=== PATIENT | female | born 1950 | race Caucasian/White ===

== ENCOUNTER 2019-10-11 01:28 | Day surgery (SDC) | payer MEDICARE, SELFPAY ==
[2019-10-05 10:32] VITALS: BMI 35.4
[2019-10-11 08:54] VITALS: BP 122/98; PULSE 92; RESP 18; TEMP 36.3; O2SAT 97
[2019-10-11] MEDS: LACTATED RINGERS 1,000 ML 150 ML IV CONT (09:00)
--- NOTE | 2019-10-11 09:29 | WPDANESEPPF ---
Anes - Initial Pre Proc Eval Procedure: Operation Date: 10/11/19 09:30 Proposed Procedures p Screening Colonoscopy - Arsenio Serrano MD Date/Time: 10/11/19 09:29 Surgeon: Arsenio Serrano MD Pre Op Diagnosis: Neoplasm Screening Patient Data Age: 69 Gender: F Height: 5 ft 2 in Weight: 87.5 kg Last Vital Signs Temp 97.4 F L 10/11/19 08:54 Pulse 92 10/11/19 08:54 Resp 18 10/11/19 08:54 BP 122/98 H 10/11/19 08:54 Pulse Ox 97 10/11/19 08:54 Allergies Allergy/AdvReac Type Severity Reaction Status Date / Time No Known Allergies Allergy Verified 10/11/19 08:53 Home Medications Medication Instructions Recorded Confirmed Type aspirin 81 mg tablet,delayed 81 mg PO DAILY 08/15/19 10/05/19 History release calcium carbonate 600 mg calcium 600 mg PO BID 08/15/19 10/05/19 History (1,500 mg) tablet cholecalciferol (vitamin D3) 25 25 mcg PO DAILY 08/15/19 10/05/19 History mcg (1,000 unit) capsule multivitamin 1 tablet PO DAILY 08/15/19 10/05/19 History atorvastatin 10 mg tablet 10 mg PO DAILY #90 tablet 08/16/19 10/05/19 Rx Collinsonia Root 1 tab-cap PO TID 10/05/19 10/05/19 History Patient hx anesthesia problems: none Family hx anesthesia problems: none PMFSH Past Medical History Medical History (Updated 10/11/19 @ 09:29 by Rene Trimble MD) Mixed hyperlipidemia Obesity (BMI 30.0-34.9) Social History Social History Smoking status: Never smoker Second hand tobacco smoke exposure: No Alcohol intake: never Anes - Eval Final PreProcedure Day of Procedure 10/11/19 09:29 Patient weight: obese Heart: regular rate and rhythm Lungs: clear to auscultation Airway: Mallampati scale class II Neurological: alert and oriented Last oral intake: >/= 8 hours ASA classification: II Emergent: no Anesthetic plan: proceed Anesthesia type and monitoring: general GIVS and standard monitoring Informed Consent: The patient's anesthetic plan and its attendant risks and benefits were discussed with the patient/family/POA. Questions were solicited and answers provided to the satisfaction of the patient/family/POA.
--- NOTE | 2019-10-11 09:34 | WPDGICN ---
Assessment and Plan Additional Plan This is a 69-year-old white female patient seen in evaluation at the request of . Patient presents for neoplasia screening. She states that her current weight appetite bowel movements are normal she denies abdominal pain. She states this week began to have bright red blood per rectum intermittently. Patient denies abdominal pain. Her bowel habits have not changed recently. Past medical history is significant for elevated cholesterol. Family history is noncontributory. No history of colon or rectal disease. Current medications include atorvastatin, and vitamins. No stated drug allergies. Physical exam reveals patient to be alert. Vital signs stable. HEENT exam unremarkable. Lungs are clear to auscultation and percussion. Heart is without murmur or extra sounds. Abdominal exam bowel sounds are present soft nontender with no hepatosplenomegaly. Digital external rectal exam is normal. Impression 1. Neoplasia screening. This is advised because of her age. 2. Rectal bleeding. Plan is to evaluate this at the same time as her colonoscopy. High-fiber diet is advised. Further recommendations will be given after endoscopy. GI Consult Note Consult date/time: 10/11/19 09:34 HPI: Luigi Mesa is a 69 year old female [facility] Past Medical History Medical History (Updated 10/11/19 @ 09:29 by Rene Trimble MD) Mixed hyperlipidemia Obesity (BMI 30.0-34.9) Social History Social History Smoking status: Never smoker Second hand tobacco smoke exposure: No Alcohol intake: never Meds Home Medications and Allergies Home Medications Medication Instructions Recorded Confirmed Type aspirin 81 mg tablet,delayed 81 mg PO DAILY 08/15/19 10/05/19 History release calcium carbonate 600 mg calcium 600 mg PO BID 08/15/19 10/05/19 History (1,500 mg) tablet cholecalciferol (vitamin D3) 25 25 mcg PO DAILY 08/15/19 10/05/19 History mcg (1,000 unit) capsule multivitamin 1 tablet PO DAILY 08/15/19 10/05/19 History atorvastatin 10 mg tablet 10 mg PO DAILY #90 tablet 08/16/19 10/05/19 Rx Collinsonia Root 1 tab-cap PO TID 10/05/19 10/05/19 History Allergies Allergy/AdvReac Type Severity Reaction Status Date / Time No Known Allergies Allergy Verified 10/11/19 08:53 Vital Signs Vital Signs - 24 hr 10/11/19 08:54 Temperature 36.3 C L Pulse Rate 92 Respiratory Rate 18 Blood Pressure 122/98 H Pulse Oximetry 97
--- NOTE | 2019-10-11 09:57 | WPDGICN ---
Assessment and Plan Additional Plan This is a 69-year-old white female patient is GI Consult Note Consult date/time: 10/11/19 09:57 HPI: Luigi Mesa is a 69 year old female [facility] Past Medical History Medical History (Updated 10/11/19 @ 09:29 by Rene Trimble MD) Mixed hyperlipidemia Obesity (BMI 30.0-34.9) Social History Social History Smoking status: Never smoker Second hand tobacco smoke exposure: No Alcohol intake: never Meds Home Medications and Allergies Home Medications Medication Instructions Recorded Confirmed Type aspirin 81 mg tablet,delayed 81 mg PO DAILY 08/15/19 10/05/19 History release calcium carbonate 600 mg calcium 600 mg PO BID 08/15/19 10/05/19 History (1,500 mg) tablet cholecalciferol (vitamin D3) 25 25 mcg PO DAILY 08/15/19 10/05/19 History mcg (1,000 unit) capsule multivitamin 1 tablet PO DAILY 08/15/19 10/05/19 History atorvastatin 10 mg tablet 10 mg PO DAILY #90 tablet 08/16/19 10/05/19 Rx Collinsonia Root 1 tab-cap PO TID 10/05/19 10/05/19 History Allergies Allergy/AdvReac Type Severity Reaction Status Date / Time No Known Allergies Allergy Verified 10/11/19 08:53 Vital Signs Vital Signs - 24 hr 10/11/19 08:54 Temperature 36.3 C L Pulse Rate 92 Respiratory Rate 18 Blood Pressure 122/98 H Pulse Oximetry 97
[2019-10-11 10:03] VITALS: BP 113/54; PULSE 76; RESP 18; O2SAT 97
[2019-10-11 10:13] VITALS: BP 111/54; PULSE 71; RESP 18; O2SAT 97
[2019-10-11 10:23] VITALS: BP 109/61; PULSE 71; RESP 18; O2SAT 97
== END 2019-10-11 11:02 | disposition home or self-care (01) ==
PROVIDERS: PCP Internal Medicine; Visit Provider Internal Medicine Gastroenterology
PROC: 0DJD8ZZ Inspection of Lower Intestinal Tract, Via Natural or Artificial Opening Endoscopic (ICD-10-PCS; CPT 45378; principal; 2019-10-11 09:30)
DX: Z12.11 Encounter for screening for malignant neoplasm of colon (principal); K57.30 Diverticulosis of large intestine without perforation or abscess without bleeding; K64.8 Other hemorrhoids; E78.2 Mixed hyperlipidemia; E66.9 Obesity, unspecified; Z68.35 Body mass index [BMI] 35.0-35.9, adult; Z79.82 Long term (current) use of aspirin
CPT/HCPCS: G0121; J2704; J7120

== ENCOUNTER 2020-01-24 08:14 | Outpatient (CLI) | payer MEDICARE, SELFPAY ==
--- NOTE | ~2020-01-24 | MM_ITS ---
EXAMINATION: MM screening [facility] BI w jeanie HISTORY: Screening mammogram TECHNIQUE: Craniocaudal and mediolateral oblique 3-D tomosynthesis images were obtained and synthetic 2-D images were generated. CAD analysis was submitted and interpreted. COMPARISON: 02/01/2019, 08/08/2018, 03/06/2018 BREAST PARENCHYMAL COMPOSITION: There are scattered areas of fibroglandular density. FINDINGS: There is no evidence of suspicious mass, calcification, or architectural distortion to sugg est malignancy in either breast. There has been no suspicious interval change. IMPRESSION: 1. No mammographic evidence of malignancy. 2. Recommend routine screening mammography in one year. BI-RADS Category 1: Negative Reviewed, dictated and finalized at location A.
== END 2020-01-24 08:15 | disposition home or self-care (01) ==
PROVIDERS: PCP Internal Medicine; Visit Provider Internal Medicine
DX: Z12.31 Encounter for screening mammogram for malignant neoplasm of breast (principal)
CPT/HCPCS: 77063; 77067

== ENCOUNTER 2020-08-16 08:08 | Outpatient (CLI) | payer MEDICARE, SELFPAY ==
[2020-08-16 08:51] LABS: Basophils Absolute Auto 0.1 K/mm3 (0.0-0.1); Basophils Percent Auto 0.8 % (0.2-1.2); Eosinophils Absolute Auto 0.3 K/mm3 (0-0.3); Eosinophils Percent Auto 2.6 % (0-4.4); Hematocrit 46.1 % (37.0-47.0); Immature Granulocyte Absolute 0.03 K/mm3 (0.00-0.031); Immature Granulocyte Percent A 0.3 % (0-0.5); Lymphocytes Absolute Auto 2.93 K/mm3 (0.9-3.2); Lymphocytes Percent Auto 30.4 % (18.3-44.2); Mean Corpuscular HGB Conc 32.5 g/dl (32-36); Mean Platelet Volume 8.8 fl (7.4-10.4); Monocytes Absolute Auto 1.2 K/mm3 (0.1-0.6); Monocytes Percent Auto 12.7 % (2.6-8.5); Neutrophils Absolute Auto 5.1 K/mm3 (1.3-6.7); Neutrophils Percent Auto 53.2 % (45.5-73.1); Platelet Count Result 306 k/mm3 (150-375); Red Blood Count 5.18 M/mm3 (4.2-5.4); Red Cell Distribution Width 13.2 % (11.5-14.5); White Blood Count 9.7 K/mm3 (4.5-10.0)
[2020-08-16 09:05] LABS: Alanine Aminotransferase 15 U/L (4-35); Albumin Level 3.8 g/dL (3.5-5.1); Alkaline Phosphatase 73 U/L (38-126); Anion Gap 5 mmol/L (8-16); Aspartate Amino Transferase 25 U/L (14-36); Bilirubin,Total 0.5 mg/dL (0.2-1.3); Blood Urea Nitrogen 27 mg/dL (7-17); Calcium 8.9 mg/dL (8.4-10.2); Carbon Dioxide 31 mmol/L (22-30); Chloride 103 mmol/L (98-107); Cholesterol 147 mg/dL (0-200); Estimated Glomerular Filt Rate 55; Glucose 122 mg/dL (65-105); HDL Direct 45 mg/dL; Potassium 4.2 mmol/L (3.4-5.0); Sodium 139 mmol/L (137-145); Triglycerides 164 mg/dL (<150)
[2020-08-16 09:15] LABS: Creatinine Urine 157.6 mg/dL
[2020-08-16 09:16] LABS: LDL Cholesterol Direct 75 mg/dL
[2020-08-16 09:20] LABS: MALB Creatinine Ratio 15.3 mg/g (0-30); Microalbumin Urine Random 24.1 mg/L (0-16.7)
[2020-08-16 09:31] LABS: Vitamin D 25 Hydroxy 48.3 ng/mL
[2020-08-16 09:38] LABS: Hemoglobin A1C 5.5 % (<5.7)
== END 2020-08-16 08:09 | disposition home or self-care (01) ==
PROVIDERS: PCP Internal Medicine; Visit Provider Internal Medicine
DX: R73.01 Impaired fasting glucose (principal); E55.9 Vitamin D deficiency, unspecified; E78.2 Mixed hyperlipidemia
CPT/HCPCS: 36415; 80053; 80061; 82043; 82306; 83036; 84443; 85025

== ENCOUNTER 2020-12-08 14:49 | Outpatient (CLI) | payer MEDICARE, SELFPAY | END 2020-12-08 14:50 | disposition home or self-care (01) | LOC: ANHCOVIDVC 14:49 | PROVIDERS: PCP Internal Medicine | DX: Z23 Encounter for immunization (principal) | CPT/HCPCS: 0001A; 91300 ==

== ENCOUNTER 2020-12-29 14:52 | Outpatient (CLI) | payer MEDICARE, SELFPAY | END 2020-12-29 14:53 | disposition home or self-care (01) | LOC: ANHCOVIDVC 14:52 | PROVIDERS: PCP Internal Medicine | DX: Z23 Encounter for immunization (principal) | CPT/HCPCS: 0002A; 91300 ==

== ENCOUNTER 2021-02-11 08:01 | Outpatient (CLI) | payer MEDICARE, SELFPAY ==
--- NOTE | ~2021-02-11 | MM_ITS ---
EXAMINATION: MM screening [facility] BI w jeanie HISTORY: Screening mammogram TECHNIQUE: Craniocaudal and mediolateral oblique 3-D tomosynthesis images were obtained and synthetic 2-D images were generated. CAD analysis was submitted and interpreted. COMPARISON: 01/24/2020, 02/01/2019, 08/08/2018, 03/06/2018 BREAST PARENCHYMAL COMPOSITION: There are scattered areas of fibroglandular density. FINDINGS: There is no evidence of suspicious mass, calcification, or architectural distortion to sugg est malignancy in either breast. There has been no suspicious interval change. IMPRESSION: 1. No mammographic evidence of malignancy. 2. Recommend routine screening mammography in one year. BI-RADS Category 1: Negative Reviewed, dictated and finalized at location A.
[2021-02-11 09:12] LABS: Alanine Aminotransferase 14 U/L (4-35); Albumin Level 3.8 g/dL (3.5-5.1); Alkaline Phosphatase 69 U/L (38-126); Anion Gap 8 mmol/L (8-16); Aspartate Amino Transferase 25 U/L (14-36); Bilirubin,Total 0.3 mg/dL (0.2-1.3); Blood Urea Nitrogen 23 mg/dL (7-17); Calcium 9.2 mg/dL (8.4-10.2); Carbon Dioxide 27 mmol/L (22-30); Chloride 106 mmol/L (98-107); Estimated Glomerular Filt Rate 49; Glucose 106 mg/dL (65-105); Potassium 4.3 mmol/L (3.4-5.0); Sodium 141 mmol/L (137-145)
== END 2021-02-11 08:02 | disposition home or self-care (01) ==
PROVIDERS: PCP Internal Medicine; Visit Provider Internal Medicine
DX: Z12.31 Encounter for screening mammogram for malignant neoplasm of breast (principal); R73.01 Impaired fasting glucose; R03.0 Elevated blood-pressure reading, without diagnosis of hypertension
CPT/HCPCS: 36415; 77063; 77067; 80053; 83036

== ENCOUNTER 2021-05-19 09:21 | Outpatient (CLI) | payer MEDICARE, SELFPAY ==
[2021-05-19 10:31] LABS: Hemoglobin A1C 5.8 % (<5.7)
[2021-05-19 10:36] LABS: Alanine Aminotransferase 15 U/L (4-35); Albumin Level 4.1 g/dL (3.5-5.1); Alkaline Phosphatase 77 U/L (38-126); Anion Gap 4 mmol/L (8-16); Aspartate Amino Transferase 29 U/L (14-36); Bilirubin,Total 0.6 mg/dL (0.2-1.3); Blood Urea Nitrogen 24 mg/dL (7-17); Calcium 9.1 mg/dL (8.4-10.2); Carbon Dioxide 30 mmol/L (22-30); Chloride 106 mmol/L (98-107); Estimated Glomerular Filt Rate 54; Glucose 116 mg/dL (65-110); Potassium 4.9 mmol/L (3.4-5.0); Sodium 140 mmol/L (137-145)
[2021-05-19 11:01] LABS: Creatinine Urine 167.5 mg/dL
[2021-05-19 11:05] LABS: MALB Creatinine Ratio 18.7 mg/g (0-30); Microalbumin Urine Random 31.3 mg/L (0-16.7)
== END 2021-05-19 09:22 | disposition home or self-care (01) ==
PROVIDERS: PCP Internal Medicine; Visit Provider Internal Medicine
DX: R73.01 Impaired fasting glucose (principal)
CPT/HCPCS: 36415; 80053; 82043; 83036

== ENCOUNTER 2021-09-29 07:41 | Outpatient (CLI) | payer MEDICARE, SELFPAY ==
[2021-09-29 08:57] LABS: Basophils Absolute Auto 0.1 K/mm3 (0.0-0.1); Basophils Percent Auto 0.7 % (0.2-1.2); Eosinophils Absolute Auto 0.3 K/mm3 (0-0.3); Eosinophils Percent Auto 2.6 % (0-4.4); Hematocrit 46.1 % (37.0-47.0); Hemoglobin 15.1 g/dL (12.0-15.0); Immature Granulocyte Absolute 0.04 K/mm3 (0.00-0.031); Immature Granulocyte Percent A 0.4 % (0-0.5); Lymphocytes Absolute Auto 3.29 K/mm3 (0.9-3.2); Lymphocytes Percent Auto 34.6 % (18.3-44.2); Mean Corpuscular HGB Conc 32.8 g/dl (32-36); Mean Corpuscular Hemoglobin 28.6 pg (26-34); Mean Corpuscular Volume 87.3 fl (80-100); Mean Platelet Volume 8.9 fl (7.4-10.4); Monocytes Percent Auto 10.8 % (2.6-8.5); Neutrophils Absolute Auto 4.8 K/mm3 (1.3-6.7); Neutrophils Percent Auto 50.9 % (45.5-73.1); Platelet Count Result 296 k/mm3 (150-375); Red Blood Count 5.28 M/mm3 (4.2-5.4); Red Cell Distribution Width 14.2 % (11.5-14.5); White Blood Count 9.5 K/mm3 (4.5-10.0)
[2021-09-29 09:06] LABS: Alanine Aminotransferase 17 U/L (4-35); Albumin Level 3.9 g/dL (3.5-5.1); Alkaline Phosphatase 75 U/L (38-126); Anion Gap 1 mmol/L (8-16); Aspartate Amino Transferase 24 U/L (14-36); Bilirubin,Total 0.4 mg/dL (0.2-1.3); Blood Urea Nitrogen 22 mg/dL (7-17); Calcium 9.2 mg/dL (8.4-10.2); Carbon Dioxide 29 mmol/L (22-30); Chloride 105 mmol/L (98-107); Cholesterol 146 mg/dL (0-200); Estimated Glomerular Filt Rate 49; Glucose 119 mg/dL (65-110); HDL Direct 46 mg/dL; Potassium 4.3 mmol/L (3.4-5.0); Sodium 135 mmol/L (137-145); Triglycerides 117 mg/dL (<150)
[2021-09-29 09:11] LABS: Hemoglobin A1C 5.9 % (<5.7)
[2021-09-29 09:17] LABS: LDL Cholesterol Direct 70 mg/dL
[2021-09-29 09:26] LABS: Vitamin D 25 Hydroxy 42.9 ng/mL
[2021-09-29 10:37] LABS: Add Urine Microscopic? YES; Appearance Urine Clear (Clear); Bilirubin Urine Negative (Negative); Blood Urine Negative (Negative); Color Urine Yellow (Yellow); Glucose Urine UA Negative (Negative); Ketones Urine Negative (Negative); Leukocyte Esterase Ur Trace LEU/UL (NEGATIVE); Mucus Urine Moderate /lpf; Nitrate Urine Negative (Negative); Protein Urine Negative (Negative); RBC Urine 21-50 /hpf (0-2); Specific Grav Ur 1.019 (1.001-1.035); Squamous Epithelial Cell Urine Occasional /hpf (Few); Urobilinogen Urine Negative mg/dL (<2.0)
== END 2021-09-29 07:42 | disposition home or self-care (01) ==
PROVIDERS: PCP Internal Medicine; Visit Provider Internal Medicine
DX: E55.9 Vitamin D deficiency, unspecified (principal); R73.01 Impaired fasting glucose; E78.2 Mixed hyperlipidemia
CPT/HCPCS: 36415; 80053; 80061; 81001; 82306; 83036; 84443; 85025

== ENCOUNTER 2021-10-08 09:37 | Outpatient (CLI) | payer MEDICARE, SELFPAY ==
[2021-10-08 10:34] LABS: Add Urine Microscopic? YES; Appearance Urine Clear (Clear); Bilirubin Urine Negative (Negative); Blood Urine Negative (Negative); Color Urine Colorless (Yellow); Glucose Urine UA Negative (Negative); Ketones Urine Negative (Negative); Leukocyte Esterase Ur Negative LEU/UL (Negative); Nitrate Urine Negative (Negative); Protein Urine Negative (Negative); RBC Urine 0-2 /hpf (0-2); Specific Grav Ur 1.005 (1.001-1.035); Squamous Epithelial Cell Urine Rare /hpf (Few); Urobilinogen Urine Negative mg/dL (<2.0)
== END 2021-10-08 09:38 | disposition home or self-care (01) ==
PROVIDERS: PCP Internal Medicine; Visit Provider Internal Medicine
DX: R82.71 Bacteriuria (principal)
CPT/HCPCS: 81001

== ENCOUNTER 2022-02-17 09:11 | Outpatient (CLI) | payer MEDICARE, SELFPAY ==
--- NOTE | ~2022-02-17 | MM_ITS ---
EXAMINATION: MM screening [facility] BI w jeanie HISTORY: Screening mammogram TECHNIQUE: Craniocaudal and mediolateral oblique 3-D tomosynthesis images were obtained and synthetic 2-D images were generated. CAD analysis was submitted and interpreted. COMPARISON: 02/11/2021, 01/16/2020 screening mammogram examinations BREAST PARENCHYMAL COMPOSITION: There are scattered areas of fibroglandular density. FINDINGS: Right breast: New 3.5 mm circumscribed opacity in the anterior inner aspect of the upper outer quadra nt of the right breast. Diagnostic right mammogram and right breast ultrasound examination are recomm ended. Left breast: There is no evidence of suspicious mass, calcification, or architectural distortion to s uggest malignancy in either breast. There has been no suspicious interval change. IMPRESSION: 1. New 3.5 mm mass in anterior inner aspect of the right breast 2. Diagnostic right mammogram and ultrasound examination are recommended BI-RADS Category 0: Incomplete: Needs additional imaging evaluation. Reviewed, dictated and finalized at location A.
== END 2022-02-17 09:12 | disposition home or self-care (01) ==
PROVIDERS: PCP Internal Medicine; Visit Provider Internal Medicine
DX: Z12.31 Encounter for screening mammogram for malignant neoplasm of breast (principal); R92.8 Other abnormal and inconclusive findings on diagnostic imaging of breast
CPT/HCPCS: 77063; 77067

== ENCOUNTER 2022-02-23 13:15 | Outpatient (CLI) | payer MEDICARE, SELFPAY ==
--- NOTE | ~2022-02-23 | MMUS_ITS ---
EXAMINATION: MM diagnostic [facility] RT w jeanie, US breast RT limited HISTORY: Follow-up right breast mass TECHNIQUE: Additional 3-D tomosynthesis images of the right breast were performed and synthetic 2-D i mages were generated. CAD analysis was submitted and interpreted. High resolution Limited right breas t ultrasound was performed. COMPARISON: Comparison to multiple prior studies sequentially, with oldest reviewed study dated 07/29. BREAST PARENCHYMAL COMPOSITION: Breast composed of scattered areas of fibroglandular density. FINDINGS: MAMMOGRAPHIC FINDINGS: There is a small periareolar mass of the right breast in the upper outer quadrant. There are no suspi cious calcifications or architectural distortion. ULTRASOUND: Limited right breast ultrasound: At 11:00 in the periareolar location there is a 3 mm cyst. This balta esponds to the mammographic abnormality. No suspicious sonographic abnormalities. IMPRESSION: 1. No evidence for malignancy in the right breast. Benign findings. 2. Routine yearly screening mammogram and regular clinical breast examination are recommended. BI-RADS Category 2: Benign finding(s). Reviewed, dictated and finalized at location A. IMPRESSION: 1. No evidence for malignancy in the right breast. Benign findings. 2. Routine yearly screening mammogram and regular clinical breast examination a re recommended. BI-RADS Category 2: Benign finding(s).
== END 2022-02-23 13:16 | disposition home or self-care (01) ==
LOC: ANHIMG 13:16
PROVIDERS: PCP Internal Medicine; Visit Provider Internal Medicine
DX: N60.01 Solitary cyst of right breast (principal)
CPT/HCPCS: 76642; 77061; 77065; G0279

== ENCOUNTER 2022-03-25 09:55 | Outpatient (CLI) | payer MEDICARE, SELFPAY ==
[2022-03-25 11:02] LABS: Alanine Aminotransferase 18 U/L (6-35); Alkaline Phosphatase 79 U/L (38-126); Anion Gap 9 mmol/L (8-16); Aspartate Amino Transferase 24 U/L (14-36); Bilirubin,Total 0.6 mg/dL (0.2-1.3); Blood Urea Nitrogen 20 mg/dL (7-17); Calcium 9.2 mg/dL (8.4-10.2); Carbon Dioxide 28 mmol/L (22-30); Chloride 103 mmol/L (98-107); Cholesterol 151 mg/dL (0-200); Estimated Glomerular Filt Rate > 60; Glucose 110 mg/dL (65-110); HDL Direct 45 mg/dL; Potassium 4.7 mmol/L (3.4-5.0); Sodium 140 mmol/L (137-145); Triglycerides 203 mg/dL (<150)
[2022-03-25 11:13] LABS: LDL Cholesterol Direct 64 mg/dL
[2022-03-25 11:22] LABS: Vitamin D 25 Hydroxy 54.7 ng/mL
[2022-03-25 12:33] LABS: Hemoglobin A1C 5.8 % (<5.7)
== END 2022-03-25 09:56 | disposition home or self-care (01) ==
PROVIDERS: PCP Internal Medicine; Visit Provider Nurse Practitioner
DX: E78.2 Mixed hyperlipidemia (principal); R73.01 Impaired fasting glucose; E55.9 Vitamin D deficiency, unspecified
CPT/HCPCS: 36415; 80053; 80061; 82306; 83036

== ENCOUNTER 2022-05-06 09:07 | Outpatient (CLI) | payer MEDICARE, SELFPAY ==
--- NOTE | ~2022-05-06 | DEXA_ITS ---
Bone Density Report Name: Luigi BROWN Age: 72 Sex: Female Ethnicity: White Date of : 1950 Indication: postmenopausal; screening for osteoporosis; height loss; Referring Provider: [facility] Study: Bone densitometry was performed. Exam Date: May 06, 2022 Accession number: [id number] Bone Density: Region BMD T-score Z-score Classification AP Spine(L1-L4) 0.983 -0.6 1.8 Normal Femoral Neck (Left) 0.831 -0.2 1.9 Normal Total Hip (Left) 1.059 1.0 2.7 Normal Femoral Neck (Right) 0.803 -0.4 1.6 Normal Total Hip (Right) 1.048 0.9 2.6 Normal Total Hip Mean 1.053 1.0 2.7 Normal World Health Organization criteria for BMD impression classify patients as: Normal (T-score at or above -1.0), Osteopenia (T-score between -1.0 and -2.5), or Osteoporosis (T-score at or below -2.5). 10-year Fracture Risk: FRAX not reported because: All T-scores for Spine Total, Hip Total, Femoral Neck at or above -1.0 Previous Exams: Region Exam Age BMD T-score BMD Change BMD Change Date g/cm2 vs Baseline vs Previous Total Hip(Right) 05/06/2022 72 1.048 0.9 -0.014 (-1.3%) -0.012 (-1.1%) 08/16/2017 67 1.060 1.0 -0.002 (-0.2%) 0.012 (1.2%) 08/08/2015 65 1.047 0.9 -0.014 (-1.3%) -0.014 (-1.3%) 07/25/2013 63 1.062 1.0 *Denotes significance at 95% confidence level, LSC for Total Hip = 0.027 g/cm2 # Denotes dissimilar scan types or analysis methods Clinical Information Provided by Patient: Has used the following medications: Vitamin D, Calcium Patient maximum height was 62 No regular weight bearing exercise Drinks caffeinated beverages Onset of menses at age 10 Number of children 3 Impression: The patient has normal bone mass. No significant bone loss was observed. Discussion: BONE DENSITY IS ABOVE THE MINIMUM DESIRABLE LEVEL AT ALL SKELETAL SITES TESTED. This patient?s bone mineral density is above the minimum desirable level (T-score -1.0 or better) at all sites measured. The patient should follow a healthful lifestyle (good nutrition with adequate calcium and vitamin D, and appropriate weight-bearing exercise). Follow-Up: Consider repeating this study in 5 years or sooner if there is some new clinical indication. Reported by: EDVIN on 05/06/2022 9:38:00 AM. Reviewed, dictated and finalized at location AReinaldo GALVEZ
== END 2022-05-06 09:08 | disposition home or self-care (01) ==
PROVIDERS: PCP Internal Medicine; Visit Provider Internal Medicine
DX: M85.89 Other specified disorders of bone density and structure, multiple sites (principal)
CPT/HCPCS: 77080

== ENCOUNTER 2022-10-07 08:21 | Outpatient (CLI) | payer MEDICARE, SELFPAY ==
[2022-10-07 11:21] LABS: Alanine Aminotransferase 17 U/L (6-35); Alkaline Phosphatase 76 U/L (38-126); Anion Gap 5 mmol/L (8-16); Aspartate Amino Transferase 23 U/L (14-36); Bilirubin,Total 0.6 mg/dL (0.2-1.3); Blood Urea Nitrogen 25 mg/dL (7-17); Calcium 8.7 mg/dL (8.4-10.2); Carbon Dioxide 28 mmol/L (22-30); Chloride 105 mmol/L (98-107); Cholesterol 157 mg/dL (0-200); Estimated Glomerular Filt Rate 54; Glucose 116 mg/dL (65-110); HDL Direct 50 mg/dL; Potassium 4.2 mmol/L (3.4-5.0); Sodium 138 mmol/L (137-145); Triglycerides 138 mg/dL (<150)
[2022-10-07 11:32] LABS: LDL Cholesterol Direct 66 mg/dL
[2022-10-07 12:27] LABS: Hemoglobin A1C 5.1 % (<5.7)
== END 2022-10-07 08:22 | disposition home or self-care (01) ==
PROVIDERS: PCP Internal Medicine; Visit Provider Nurse Practitioner
DX: E78.5 Hyperlipidemia, unspecified (principal); R73.01 Impaired fasting glucose
CPT/HCPCS: 36415; 80053; 80061; 83036

== ENCOUNTER 2023-04-14 07:24 | Outpatient (CLI) | payer MEDICARE, SELFPAY ==
[2023-04-14 08:46] LABS: Alanine Aminotransferase 18 U/L (6-35); Albumin Level 3.7 g/dL (3.5-5.1); Alkaline Phosphatase 70 U/L (38-126); Anion Gap 1 mmol/L (8-16); Aspartate Amino Transferase 23 U/L (14-36); Bilirubin,Total 0.6 mg/dL (0.2-1.3); Blood Urea Nitrogen 24 mg/dL (7-17); Carbon Dioxide 30 mmol/L (22-30); Chloride 105 mmol/L (98-107); Cholesterol 156 mg/dL (0-200); Estimated Glomerular Filt Rate 54; Glucose 118 mg/dL (65-110); HDL Direct 47 mg/dL; Potassium 4.6 mmol/L (3.4-5.0); Sodium 136 mmol/L (137-145); Triglycerides 187 mg/dL (<150)
[2023-04-14 08:57] LABS: LDL Cholesterol Direct 77 mg/dL
== END 2023-04-14 07:25 | disposition home or self-care (01) ==
LOC: ANHLAB 07:25
PROVIDERS: PCP Family Medicine; Visit Provider Nurse Practitioner
DX: E78.5 Hyperlipidemia, unspecified (principal)
CPT/HCPCS: 36415; 80053; 80061

== ENCOUNTER 2023-08-16 12:36 | Outpatient (CLI) | payer MEDICARE, SELFPAY ==
--- NOTE | ~2023-08-16 | MM_ITS ---
EXAMINATION: MM screening [facility] BI w jeanie HISTORY: Screening mammogram TECHNIQUE: Craniocaudal and mediolateral oblique 3-D tomosynthesis images were obtained and synthetic 2-D images were generated. CAD analysis was submitted and interpreted. COMPARISON: 02/23/2022 diagnostic right mammogram and limited right breast ultrasound examination 02/17/2022, 02/11/2021, 01/24/2020 bilateral screening mammogram examinations BREAST PARENCHYMAL COMPOSITION: There are scattered areas of fibroglandular density. FINDINGS: . Occasional bilateral small circumscribed low-density opacities, benign in appearance. The re is no evidence of suspicious mass, calcification, or architectural distortion to suggest malignanc y in either breast. There has been no suspicious interval change. IMPRESSION: 1. No mammographic evidence of malignancy. 2. Recommend routine screening mammography in one year. BI-RADS Category 2: Benign finding(s). Reviewed, dictated and finalized at location A. ADMISSIONS
== END 2023-08-16 12:37 | disposition home or self-care (01) ==
PROVIDERS: PCP Nurse Practitioner Family; Visit Provider Nurse Practitioner Family
DX: Z12.31 Encounter for screening mammogram for malignant neoplasm of breast (principal)
CPT/HCPCS: 77063; 77067

== ENCOUNTER 2023-10-10 08:29 | Outpatient (CLI) | payer MEDICARE, SELFPAY ==
[2023-10-10 09:11] LABS: Basophils Absolute Auto 0.1 K/mm3 (0.0-0.1); Basophils Percent Auto 0.7 % (0.2-1.2); Eosinophils Absolute Auto 0.3 K/mm3 (0-0.3); Eosinophils Percent Auto 2.1 % (0-4.4); Hematocrit 48.3 % (37.0-47.0); Hemoglobin 14.9 g/dL (12.0-15.0); Immature Granulocyte Absolute 0.03 K/mm3 (0.00-0.031); Immature Granulocyte Percent A 0.3 % (0-0.5); Lymphocytes Absolute Auto 3.69 K/mm3 (0.9-3.2); Lymphocytes Percent Auto 31.7 % (18.3-44.2); Mean Corpuscular HGB Conc 30.8 g/dl (32-36); Mean Corpuscular Hemoglobin 28.4 pg (26-34); Mean Platelet Volume 9.2 fl (7.4-10.4); Monocytes Absolute Auto 1.2 K/mm3 (0.1-0.6); Monocytes Percent Auto 9.9 % (2.6-8.5); Neutrophils Absolute Auto 6.4 K/mm3 (1.3-6.7); Neutrophils Percent Auto 55.3 % (45.5-73.1); Platelet Count Result 262 k/mm3 (150-375); Red Blood Count 5.25 M/mm3 (4.2-5.4); Red Cell Distribution Width 13.5 % (11.5-14.5); White Blood Count 11.6 K/mm3 (4.5-10.0)
[2023-10-10 09:29] LABS: Alanine Aminotransferase 15 U/L (6-35); Albumin Level 3.6 g/dL (3.5-5.1); Alkaline Phosphatase 75 U/L (38-126); Anion Gap 2 mmol/L (8-16); Aspartate Amino Transferase 26 U/L (14-36); Bilirubin,Total 0.7 mg/dL (0.2-1.3); Blood Urea Nitrogen 22 mg/dL (7-17); Calcium 8.9 mg/dL (8.4-10.2); Carbon Dioxide 31 mmol/L (22-30); Chloride 105 mmol/L (98-107); Cholesterol 154 mg/dL (0-200); Estimated Glomerular Filt Rate > 60; Glucose 114 mg/dL (65-110); HDL Direct 52 mg/dL; Potassium 4.3 mmol/L (3.4-5.0); Sodium 138 mmol/L (137-145); Triglycerides 142 mg/dL (<150)
[2023-10-10 09:40] LABS: LDL Cholesterol Direct 80 mg/dL
== END 2023-10-10 08:30 | disposition home or self-care (01) ==
PROVIDERS: PCP Nurse Practitioner Family; Visit Provider Nurse Practitioner Family
DX: E55.9 Vitamin D deficiency, unspecified (principal); E78.2 Mixed hyperlipidemia; E66.9 Obesity, unspecified; R73.01 Impaired fasting glucose
CPT/HCPCS: 36415; 80053; 80061; 82306; 83036; 85025

== ENCOUNTER 2023-10-12 09:44 | Outpatient (CLI) | payer MEDICARE, SELFPAY ==
--- NOTE | ~2023-10-12 | XR_ITS ---
Clinical Indication: Chronic cough PA and lateral views of the chest: Comparison: 04/26/2016 Findings: The lungs are clear, without evidence of focal consolidation or pleural effusion. Cardiome diastinal silhouette is within normal limits. Bones and soft tissues are unremarkable. Impression: Normal chest. Reviewed, dictated and finalized at location . [employer]ER Impression: Normal chest.
== END 2023-10-12 09:45 | disposition home or self-care (01) ==
LOC: ANHIMG 09:47
PROVIDERS: PCP Nurse Practitioner Family; Visit Provider Nurse Practitioner Family
DX: R05.3 Chronic cough (principal)
CPT/HCPCS: 71046

== ENCOUNTER 2024-04-11 07:40 | Outpatient (CLI) | payer MEDICARE, SELFPAY ==
[2024-04-11 08:00] LABS: Basophils Absolute Auto 0.1 K/mm3 (0.0-0.1); Basophils Percent Auto 0.4 % (0.2-1.2); Eosinophils Absolute Auto 0.2 K/mm3 (0-0.3); Eosinophils Percent Auto 1.3 % (0-4.4); Hematocrit 49.7 % (37.0-47.0); Hemoglobin 15.6 g/dL (12.0-15.0); Immature Granulocyte Absolute 0.19 K/mm3 (0.00-0.031); Immature Granulocyte Percent A 1.2 % (0-0.5); Lymphocytes Absolute Auto 5.43 K/mm3 (0.9-3.2); Lymphocytes Percent Auto 33.8 % (18.3-44.2); Mean Corpuscular HGB Conc 31.4 g/dl (32-36); Mean Corpuscular Hemoglobin 28.7 pg (26-34); Mean Corpuscular Volume 91.5 fl (80-100); Mean Platelet Volume 8.4 fl (7.4-10.4); Monocytes Absolute Auto 1.3 K/mm3 (0.1-0.6); Monocytes Percent Auto 7.9 % (2.6-8.5); Neutrophils Absolute Auto 8.9 K/mm3 (1.3-6.7); Neutrophils Percent Auto 55.4 % (45.5-73.1); Platelet Count Result 300 k/mm3 (150-375); Red Blood Count 5.43 M/mm3 (4.2-5.4); Red Cell Distribution Width 13.7 % (11.5-14.5); White Blood Count 16.1 K/mm3 (4.5-10.0)
[2024-04-11 08:08] LABS: Hemoglobin A1C 6.2 % (<5.7)
[2024-04-11 08:12] LABS: Alanine Aminotransferase 17 U/L (6-35); Albumin Level 3.5 g/dL (3.5-5.1); Alkaline Phosphatase 73 U/L (38-126); Anion Gap 4 mmol/L (4-12); Aspartate Amino Transferase 23 U/L (14-36); Bilirubin,Total 0.5 mg/dL (0.2-1.3); Blood Urea Nitrogen 19 mg/dL (7-17); Calcium 8.5 mg/dL (8.4-10.2); Carbon Dioxide 32 mmol/L (22-30); Chloride 100 mmol/L (98-107); Estimated Glomerular Filt Rate 54; Glucose 126 mg/dL (65-110); Potassium 4.1 mmol/L (3.4-5.0); Sodium 136 mmol/L (137-145)
== END 2024-04-11 07:41 | disposition home or self-care (01) ==
PROVIDERS: PCP Nurse Practitioner Family; Visit Provider Nurse Practitioner Family
DX: R73.01 Impaired fasting glucose (principal); E78.2 Mixed hyperlipidemia; R05.3 Chronic cough; R06.02 Shortness of breath
CPT/HCPCS: 36415; 80053; 83036; 85025; 88184

== ENCOUNTER 2024-08-17 09:12 | Outpatient (CLI) | payer MEDICARE, SELFPAY ==
--- NOTE | ~2024-08-17 | DEXA_ITS ---
Bone Density Report Name: Luigi BROWN Age: 74 Sex: Female Ethnicity: White Date of : 1950 Indication: postmenopausal; screening for osteoporosis; height loss; Referring Provider: RENITA NEVES Study: Bone densitometry was performed. Exam Date: August 17, 2024 Accession number: [id number] Bone Density: Region BMD T-score Z-score Classification AP Spine(L1-L4) 1.004 -0.4 2.1 Normal Femoral Neck (Left) 0.834 -0.1 2.0 Normal Total Hip (Left) 0.990 0.4 2.2 Normal Femoral Neck (Right) 0.799 -0.5 1.7 Normal Total Hip (Right) 1.042 0.8 2.7 Normal Total Hip Mean 1.016 0.6 2.5 Normal World Health Organization criteria for BMD impression classify patients as: Normal (T-score at or above -1.0), Osteopenia (T-score between -1.0 and -2.5), or Osteoporosis (T-score at or below -2.5). 10-year Fracture Risk: FRAX not reported because: All T-scores for Spine Total, Hip Total, Femoral Neck at or above -1.0 Previous Exams: Region Exam Age BMD T-score BMD Change BMD Change Date g/cm2 vs Baseline vs Previous AP Spine (L1-L4) 08/17/2024 74 1.004 -0.4 0.079 (8.5%)* 0.021 (2.1%)# 05/06/2022 72 0.983 -0.6 0.058 (6.3%)# 0.006 (0.6%) 08/16/2017 67 0.977 -0.6 0.052 (5.7%)# 0.028 (3.0%)* 08/08/2015 65 0.949 -0.9 0.024 (2.6%)# 0.024 (2.6%)# 07/25/2013 63 0.925 -1.1 Total Hip(Left) 08/17/2024 74 0.990 0.4 -0.040 (-3.8%) -0.070 (-6.6%) 05/06/2022 72 1.059 1.0 0.030 (2.9%)# 0.024 (2.3%) 08/16/2017 67 1.035 0.8 0.006 (0.6%)# -0.001 (-0.1%) 08/08/2015 65 1.036 0.8 0.007 (0.7%)# 0.007 (0.7%)# 07/25/2013 63 1.029 0.7 Total Hip(Right) 08/17/2024 74 1.042 0.8 -0.020 (-1.9%) -0.006 (-0.5%) 05/06/2022 72 1.048 0.9 -0.014 (-1.3%) -0.012 (-1.1%) 08/16/2017 67 1.060 1.0 -0.002 (-0.2%) 0.012 (1.2%) 08/08/2015 65 1.047 0.9 -0.014 (-1.3%) -0.014 (-1.3%) 07/25/2013 63 1.062 1.0 *Denotes significance at 95% confidence level, LSC for AP Spine = 0.022 g/cm2, LSC for Total Hip = 0.027 g/cm2 # Denotes dissimilar scan types or analysis methods Clinical Information Provided by Patient: Has used the following medications: Vitamin D, Calcium Patient maximum height was 62 Menopause Age: 46 No regular weight bearing exercise Drinks caffeinated beverages Onset of menses at age 10 Number of children 3 Impression: The patient has normal bone mass. No significant bone loss was observed. Discussion: BONE DENSITY IS ABOVE THE MINIMUM DESIRABLE LEVEL AT ALL SKELETAL SITES TESTED. This patient?s bone mineral density is above the minimum desirable level (T-score -1.0 or better) at all sites measured. The patient should follow a healthful lifestyle (good nutrition with adequate calcium and vitamin D, and appropriate weight-bearing exercise). Follow-Up: Consider repeating this study in 5 years or sooner if there is some new clinical indication. Reported by: EMMANUEL on 08/17/2024 9:55:00 AM. Reviewed, dictated and finalized at location Mike GALVEZ
--- NOTE | ~2024-08-17 | MM_ITS ---
EXAMINATION: MM screening [facility] BI w jeanie HISTORY: Screening TECHNIQUE: Craniocaudal and mediolateral oblique 3-D tomosynthesis images were obtained and synthetic 2-D images were generated. CAD analysis was submitted and interpreted. COMPARISON: Comparison to multiple prior studies sequentially, with oldest reviewed study dated 01/23. BREAST PARENCHYMAL COMPOSITION: Not dense: There are scattered areas of fibroglandular density. FINDINGS: The left breast is stable without evidence for malignancy. There are developing asymmetries centered in the upper outer quadrant of the right breast, middle third. There is a stable low-densit y mass in the periareolar region. IMPRESSION: 1. Developing right breast asymmetries. 2. Additional mammographic views and possible breast ultrasound are recommended. BI-RADS Category 0: Incomplete: Needs additional imaging evaluation. Reviewed, dictated and finalized at location B. HANDISING CONSULTANT IMPRESSION: 1. Developing right breast asymmetries. 2. Additional mammographic views and possible breast ultrasound are recommended . BI-RADS Category 0: Incomplete: Needs additional imaging evaluation.
== END 2024-08-17 09:13 | disposition home or self-care (01) ==
PROVIDERS: PCP Nurse Practitioner Family; Visit Provider Nurse Practitioner Family
DX: Z12.31 Encounter for screening mammogram for malignant neoplasm of breast (principal); Z78.0 Asymptomatic menopausal state; R92.8 Other abnormal and inconclusive findings on diagnostic imaging of breast
CPT/HCPCS: 77063; 77067; 77080

== ENCOUNTER 2024-09-18 10:26 | Outpatient (CLI) | payer MEDICARE, SELFPAY ==
--- NOTE | ~2024-09-18 | MMUS_ITS ---
EXAMINATION: MM diagnostic mere RT w jeanie, US breast RT complete HISTORY: Follow-up right breast asymmetries TECHNIQUE: Additional 3-D tomosynthesis images of the right breast were performed and synthetic 2-D i mages were generated. CAD analysis was submitted and interpreted. High resolution complete right raomna st ultrasound was performed. COMPARISON: Comparison to multiple prior studies sequentially, with oldest reviewed study dated 01/23. BREAST PARENCHYMAL COMPOSITION: Not dense: There are scattered areas of fibroglandular density. FINDINGS: MAMMOGRAPHIC FINDINGS: There are nodular asymmetries in the upper outer quadrant of the right breast anteriorly, although th is is less apparent with spot compression and mediolateral views. ULTRASOUND: Complete US of all 4 quadrants of the right breast/s and retroareolar region was reviewed. At 12:00 n ear the nipple there is 3 mm cyst. At 3:00, 2 cm from the nipple there is a benign-appearing anechoic structure with posterior shadowing measuring 3 mm, likely a benign cyst with milk of calcium layerin g or benign oral cysts. At 8:00, 12 cm from the nipple there is a benign-appearing intramammary lymph node. At 9:00, 2 cm from the nipple there is a 4 mm cyst. IMPRESSION: 1. No evidence for malignancy in the right breast. Benign findings. 2. Routine yearly screening mammogram and regular clinical breast examination are recommended. BI-RADS Category 2: Benign finding(s). Reviewed, dictated and finalized at location A. TECHNICIAN IMPRESSION: 1. No evidence for malignancy in the right breast. Benign findings. 2. Routine yearly screening mammogram and regular clinical breast examination a re recommended. BI-RADS Category 2: Benign finding(s).
== END 2024-09-18 10:27 | disposition home or self-care (01) ==
PROVIDERS: PCP Nurse Practitioner Family; Visit Provider Nurse Practitioner Family
DX: R92.8 Other abnormal and inconclusive findings on diagnostic imaging of breast (principal)
CPT/HCPCS: 76641; 77061; 77065; G0279

== ENCOUNTER 2024-10-02 15:24 | Inpatient (IN) | payer MEDICARE, SELFPAY ==
[2024-10-02] VITALS (8 sets, daily range): BP systolic 118–149; BP diastolic 53–75; PULSE 81–105; RESP 20–24; TEMP 36.6–39.4; O2SAT 90–96
--- NOTE | ~2024-10-02 | CT_ITS ---
EXAMINATION: CTA chest PE protocol DATE: 10/02/2024 19:56 SECRETARY OFFICE CLERK INDICATION: Shortness of breath with chronic cough and positive influenza A and leukocytosis. Pulmona ry embolus suspected clinically. TECHNIQUE: Computed tomographic angiography (CTA) of the chest was performed with 100 mL Omnipaque-35 0 intravenous contrast. The dose-length product was 673.05 mGy-cm. Maximum intensity projection 3D-re constructions of the aorta and other arteries were constructed by the technologist on a separate work station. COMPARISON: None. FINDINGS: No filling defects within the main or proximal pulmonary arteries. The thoracic aorta is unremarkable without aneurysmal dilatation or dissection. Interstitial thickening is detected bilaterally. Left basilar consolidation is noted, with trace righ t-sided consolidation. Limited evaluation of the upper abdomen. IMPRESSION: No pulmonary embolus. No aortic dissection. Left basilar consolidation with trace right-sided consolidation. Reviewed, dictated and finalized at location A. ETARY OFFICE CLERK
--- NOTE | ~2024-10-02 | XR_ITS ---
CHEST RADIOGRAPH, PA AND LATERAL CLINICAL HISTORY: shortness of breath . COMPARISON: 10/12/2023 TECHNIQUE: PA and lateral views of the chest. FINDINGS The cardiomediastinal silhouette is partially obscured, unchanged. Platelike atelectasis within the left mid to lower lung field with a small left-sided pleural effusio n. The remainder of the lungs are clear. IMPRESSION: Small left-sided pleural effusion with platelike atelectasis in the left mid to lower lung field. Reviewed, dictated and finalized at location A. [employer]
--- NOTE | 2024-10-02 15:26 | ECG_ITS ---
Test Date: 2024-10-02 15:58:13 Measurements Intervals [place] Rate: 113 P: 51 OK: 168 QRS: -57 QRSD: 84 T: 65 QT: 311 QTc: 427 Interpretive Statements SINUS TACHYCARDIA WITH OCCASIONAL SUPRAVENTRICULAR PREMATURE COMPLEXES POSSIBLE LEFT ATRIAL ENLARGEMENT LEFT ANTERIOR FASCICULAR BLOCK BASELINE ARTIFACT- I, III, AVR, AVL, AVF, V1, V4-V6 ABNORMAL ECG No previous ECG available for comparison Electronically Signed On 10-02-2024 18:38:44 PLANT NURSERY WORKER by Sarwat Shane D.O.
--- NOTE | 2024-10-02 16:03 | ED_ITS ---
HPI - SOB/Dyspnea General Chief Complaint: Shortness of Breath/Dyspnea <Marysol Lange APRN - Last Filed: 10/02/24 16:07> Stated Complaint: shortness of breath, cough-86% on RA <Marysol Lange APRN - Last Filed: 10/02/24 16:07> Time Seen by Provider: 10/02/24 15:50 <Marysol Lange APRN - Last Filed: 10/02/24 16:07> Focused HPI: Patient is a 74-year-old female presents to the ER with shortness of breath and a new oxygen requirement. She reports she has had cough and congestion for approximately 1 week. Today she became short of breath. Her primary care provider called the ER to alert staff of her arrival. Patient is is unable to maintain her oxygen saturation on room air and is requiring 2L nasal cannula to maintain saturations in the mid 90s. She reports her only history is high cholesterol. Patient denies any abdominal pain, back pain, urinary symptoms, recent nausea/vomiting. She reports she has never smoked cigarettes and does not have any secondhand exposure. GENERAL: Ill-appearing, well-nourished, and in acute respiratory distress. HEAD: Normocephalic, atraumatic. CHEST: Wheezing upon auscultation. ?+ respiratory distress. HEART: Tachycardia.? NEURO: ?Alert and oriented x3. Patient screened in triage and initial orders placed.? ?Additional care and disposition to be based upon?diagnostic testing and treatment. <Marysol Lange APRN - Last Filed: 10/02/24 16:07> Focused HPI: Patient is a 74-year-old female presents to the ER with shortness of breath and a new oxygen requirement. She reports she has had cough and congestion for approximately 1 week. Today she became short of breath. Her primary care provider called the ER to alert staff of her arrival. Patient is is unable to maintain her oxygen saturation on room air and is requiring 2L nasal cannula to maintain saturations in the mid 90s. She reports her only history is high cholesterol. Patient denies any abdominal pain, back pain, urinary symptoms, recent nausea/vomiting. She reports she has never smoked cigarettes and does not have any secondhand exposure. GENERAL: Ill-appearing, well-nourished, and in acute respiratory distress. HEAD: Normocephalic, atraumatic. CHEST: Wheezing upon auscultation. ?+ respiratory distress. HEART: Tachycardia.? NEURO: ?Alert and oriented x3. Patient screened in triage and initial orders placed.? ?Additional care and disposition to be based upon?diagnostic testing and treatment. <Brenna Wilcox PA-C - Last Filed: 10/02/24 22:14> Source: patient <NICOLAS Gage Last Filed: 10/02/24 22:14> Mode of arrival: ambulatory <NICOLAS Gage Last Filed: 10/02/24 22:14> Limitations: no limitations <NICOLAS Gage Last Filed: 10/02/24 22:14> History of Present Illness HPI Narrative: Agree with above HPI. Reports has been has been sick with similar symptoms. Denies known fevers at home. Has had some chest pain with coughing, but denies chest pain at rest. <NICOLAS Gage Last Filed: 10/02/24 22:14> Related Data Home Medications: Home Medications ?Medication ?Instructions ?Recorded ?Confirmed ?Last Taken ?Type calcium carbonate (Calcium 600) 600 mg PO BID 08/15/19 10/03/24 09/30/24 History cholecalciferol (vitamin D3) 25 25 mcg PO DAILY 08/15/19 10/03/24 09/30/24 History mcg (1,000 unit) capsule (Vitamin D3) <Mraysol Lange APRN - Last Filed: 10/02/24 16:07> Allergies/Adverse Reactions: Allergies Allergy/AdvReac Type Severity Reaction Status Date / Time No Known Allergies Allergy Verified 10/02/24 15:25 <Marysol Lange APRN - Last Filed: 10/02/24 16:07> Review of Systems 2 Review of Systems: All systems reviewed & are unremarkable except as noted in HPI. 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 Chronic sinusitis With chronic cough Allergic rhinitis Mixed hyperlipidemia Obesity (BMI 30.0-34.9) <Marysol Lange, ARCHITECT - Last Filed: 10/02/24 16:07> Surgical History Surgical History: Surgical History S/P cubital tunnel release Left Bunion of unspecified foot Removal yr unknown H/O: x3 1970,1972,1975 <Marysol Lange, ARCHITECT - Last Filed: 10/02/24 16:07> Family History Family History: Family History Sibling Family history of thyroid disease Family history of Parkinson's disease Family history of Alzheimer's disease Mother Family history of Alzheimer's disease, Onset Age: 87 Family history of diabetes mellitus in first degree relative Father Family history of heart disease in male family member before age 55 Family history of cardiovascular disease Family history of arthritis Family history of hearing loss <Marysol Lange, ARCHITECT - Last Filed: 10/02/24 16:07> Social History Social History: Social History Social History: She lives her of 55 years. They 3 daughters. She is a lifelong nonsmoker and does not drink alcohol or use illicit substances. She is independent in all activities of daily living. Code status: DNR/DNI per patient request Healthcare power of deputy prosecuting attorney: Javon () or if is ill and unable to provide answers she will defer surrogate decision making to Prema (youngest daughter) Smoking status: Never smoker Second hand tobacco smoke exposure: No Alcohol intake: never Substance use: never Substance use type: does not use Do You Feel Safe in your Home?: Yes Lack of Transportation: No Lack of Food: Never True Current Housing: I Have Housing Concerned About Future Housing: No Difficulty Paying Gas/Electric Bills: No Difficulty Paying for Meds: No Currently Unemployed: No Education: Bachelor's Degree Difficulty w/ Childcare or Family Care: No Living arrangements: with family Occupation/Education: retired Gender identity (if verbalized by the patient): Female Sexual Orientation (if Verbalized by the Patient): Straight or Heterosexual Spiritual care concerns: No Agree to blood products: Yes <Marysol Lange APRN - Last Filed: 10/02/24 16:07> Exam 2 Narrative: GENERAL: Ill-appearing, obese with BMI of 36.8, in mild acute distress. HEAD: Normocephalic, atraumatic. RESPIRATORY: Airway patent, respirations mildly labored, tachypneic. On 4 L nasal cannula. Diffuse rhonchi throughout bases bilaterally. Occasional faint expiratory wheezing gregoria - worse in L lower lung zone CARDIOVASCULAR: Borderline tachycardic with regular rhythm without murmurs, rubs, or gallops. ABDOMINAL: Soft, nontender, nondistended. Normoactive BS. MUSCULOSKELETAL: Moves all extremities. No gross deformities. SKIN: Warm, dry, normal color. NEURO: A&O X3. Speech clear. Cranial nerves II-XII grossly intact. Steady gait. No ataxic movements. PSYCHIATRIC: Appropriate mood and affect. Normal interaction. <Brenna Wilcox PA-C - Last Filed: 10/02/24 22:14> Course BOOKING PRIZER/PA Physician Supervision PA informed me this patient would be admitted. I was available for consultation while they were in the emergency department but otherwise not personally evaluate them and was not directly involved in their care. <Cheryl Davenport MD - Last Filed: 10/03/24 18:06> Vital Signs Vital signs: Vital Signs Temperature 98.3 F 10/02/24 16:29 Pulse Rate 103 H 10/02/24 16:29 Respiratory Rate 24 H 10/02/24 16:29 Blood Pressure 139/70 10/02/24 16:29 Pulse Oximetry 94 10/02/24 16:29 Oxygen Delivery Nasal Cannula 10/02/24 16:29 Oxygen Flow Rate 2 10/02/24 16:29 Temperature 97.8 F 10/03/24 14:00 Pulse Rate 86 10/03/24 14:00 Respiratory Rate 20 10/03/24 14:00 Blood Pressure 142/64 H 10/03/24 14:00 Pulse Oximetry 96 10/03/24 14:00 Oxygen Delivery Room Air 10/03/24 13:30 Oxygen Flow Rate 2 10/03/24 13:15 <Marysol Lange APRN - Last Filed: 10/02/24 16:07> Vital Signs Temperature 98.3 F 10/02/24 16:29 Pulse Rate 103 H 10/02/24 16:29 Respiratory Rate 24 H 10/02/24 16:29 Blood Pressure 139/70 10/02/24 16:29 Pulse Oximetry 94 10/02/24 16:29 Oxygen Delivery Nasal Cannula 10/02/24 16:29 Oxygen Flow Rate 2 10/02/24 16:29 Temperature 97.8 F 10/03/24 14:00 Pulse Rate 86 10/03/24 14:00 Respiratory Rate 20 10/03/24 14:00 Blood Pressure 142/64 H 10/03/24 14:00 Pulse Oximetry 96 10/03/24 14:00 Oxygen Delivery Room Air 10/03/24 13:30 Oxygen Flow Rate 2 10/03/24 13:15 <Brenna Wilcox PA-C - Last Filed: 10/02/24 22:14> Vital Signs Temperature 98.3 F 10/02/24 16:29 Pulse Rate 103 H 10/02/24 16:29 Respiratory Rate 24 H 10/02/24 16:29 Blood Pressure 139/70 10/02/24 16:29 Pulse Oximetry 94 10/02/24 16:29 Oxygen Delivery Nasal Cannula 10/02/24 16:29 Oxygen Flow Rate 2 10/02/24 16:29 Temperature 97.8 F 10/03/24 14:00 Pulse Rate 86 10/03/24 14:00 Respiratory Rate 20 10/03/24 14:00 Blood Pressure 142/64 H 10/03/24 14:00 Pulse Oximetry 96 10/03/24 14:00 Oxygen Delivery Room Air 10/03/24 13:30 Oxygen Flow Rate 2 10/03/24 13:15 <Cheryl Davenport MD - Last Filed: 10/03/24 18:06> MDM - SOB/Dyspnea MDM Narrative Medical decision making narrative: Patient presented to ED with URI symptoms x1 week, now with increased shortness of breath. Patient was noted to be hypoxic upon arrival into the mid 80s. She was placed on 2 L nasal cannula, which was increased to 4L. No previous oxygen requirement. Upon my evaluation, patient is tachycardic, tachypneic, febrile. Fluids and Tylenol initiated. CBC with white blood cell count of 18.6. Neutrophil predominance. No bandemia. CMP with evidence of mild dehydration. Electrolytes are stable. Kidney function is stable. Patient is influenza A positive. This is consistent with clinical picture. is also present in the ED and positive for influenza as well. EKG with sinus tachycardia, no concerning ischemic changes. Baseline troponin is undetectable. BNP WNL. Chest x-ray with small left-sided pleural effusion. D-dimer did result elevated at 2.03. CTA PE study of obtained and no evidence of PE or aortic abnormality. Does show left basilar consolidation, trace right-sided consolidation. Patient will be admitted for further evaluation and management of influenza and new oxygen requirement. Will obtain blood cultures. Procal is 0.2. Lactic acid within normal range. Discussed case with Dr. Mosqueda, hospitalist, accepted patient for admission. Will start abx to cover for potential superimposed bacterial PNA given patient is 1 week out from symptom onset with persistent fevers, lobar consolidation, leukocytosis. Rocephin and azithromycin started in the ED. Urine additionally does appear infectious. Sent for cx. Rocephin ongoing. Patient is in agreement with plan and need for admission. <Brenna Wilcox PA-C - Last Filed: 10/02/24 22:14> Medical Records Attestation: I reviewed the patient's medical records. <Brenna Wilcox PA-C - Last Filed: 10/02/24 22:14> Lab Data Attestation: I reviewed the patient's lab results. <Brenna Wilcox PA-C - Last Filed: 10/02/24 22:14> Result diagrams: 10/03/24 08:20 10/03/24 08:20 <Marysol Lange APRN - Last Filed: 10/02/24 16:07> Labs: Lab Results 10/02/24 10/02/24 10/02/24 Range/Units 16:04 16:05 19:46 WBC 18.6 H (4.5-10.0) K/mm3 RBC 4.86 (4.2-5.4) M/mm3 Hgb 13.8 (12.0-15.0) g/dL Hct 42.4 (37.0-47.0) % MCV 87.2 (80-100) fl MCH 28.4 (26-34) pg MCHC 32.5 (32-36) g/dl RDW 13.5 (11.5-14.5) % Plt Count 300 (150-375) k/mm3 MPV 9.4 (7.4-10.4) fl Immature Gran % (Auto) 1.0 H (0-0.5) % Neut % (Auto) 75.3 H (45.5-73.1) % Lymph % (Auto) 12.2 L (18.3-44.2) % [place] % (Auto) 10.6 H (2.6-8.5) % Eos % (Auto) 0.6 (0-4.4) % Baso % (Auto) 0.3 (0.2-1.2) % Lymph # (Auto) 2.26 (0.9-3.2) K/mm3 [place] # (Auto) 2.0 H (0.1-0.6) K/mm3 Eos # (Auto) 0.1 (0-0.3) K/mm3 Baso # (Auto) 0.1 (0.0-0.1) K/mm3 Abs Immat Gran (auto) 0.19 H (0.00-0.031) K/mm3 Absolute Neuts (auto) 14.0 H (1.3-6.7) K/mm3 Absolute Nucleated RBC 0.000 (0.0-0.012) K/mm3 Nucleated RBC % 0.0 (0.0-0.2) % PT 15.4 H (11.1-14.7) Seconds INR 1.2 APTT 33.3 (22.3-36.8) Seconds D-Dimer 2.03 H (<0.48) ug/mL Sodium 132 L (137-145) mmol/L Potassium 3.9 (3.4-5.0) mmol/L Chloride 96 L (98-107) mmol/L Carbon Dioxide 29 (22-30) mmol/L Anion Gap 7 (4-12) mmol/L BUN 25 H (7-17) mg/dL Creatinine 0.75 (0.7-1.0) mg/dL Estim Creat Clear Calc Not Reportable Estimated GFR > 60 (59 - ) Glucose 123 H (65-110) mg/dL Lactic Acid 1.2 (0.7-2.0) mmol/L Calcium 8.4 (8.4-10.2) mg/dL Magnesium 2.4 H (1.6-2.3) mg/dL Total Bilirubin 1.0 (0.2-1.3) mg/dL AST 44 H (14-36) U/L ALT 25 (6-35) U/L Alkaline Phosphatase 115 (38-126) U/L Troponin I < 0.012 (0.000-0.034) ng/mL NT-Pro-B Natriuret Pep 157 H (19.9-100) pg/mL Total Protein 7.0 (6.3-8.2) g/dL Albumin 3.4 L (3.5-5.1) g/dL Procalcitonin 0.2 ng/mL Urine Color (Yellow) Urine Appearance (Clear) Urine pH (5.0-9.0) Ur Specific [place] (1.001-1.035) Urine Protein (Negative) mg/dL Urine Glucose (UA) (Negative) mg/dL Urine Ketones (Negative) mg/dL Ur Blood (Man) (Negative) Urine Nitrate (Negative) Urine Bilirubin (Negative) Urine Urobilinogen (<2.0) mg/dL Add Ur Microanalysis Leukocyte Esterase Rfl (Negative) PARKER/UL Urine RBC (0-2) /hpf Urine WBC (0-3) /hpf Ur Squamous Epith Cells (Few) /hpf Urine Bacteria /hpf Urine Casts Urine Yeast (Budding) (None) /hpf Influenza A (RT-PCR) Positive A (Negative) Influenza B (RT-PCR) Negative (Negative) RSV (RT-PCR) Negative (Negative) SARS-CoV-2 RNA (RT-PCR) Negative (Negative) 10/02/24 Range/Units 20:47 WBC (4.5-10.0) K/mm3 RBC (4.2-5.4) M/mm3 Hgb (12.0-15.0) g/dL Hct (37.0-47.0) % MCV (80-100) fl MCH (26-34) pg MCHC (32-36) g/dl RDW (11.5-14.5) % Plt Count (150-375) k/mm3 MPV (7.4-10.4) fl Immature Gran % (Auto) (0-0.5) % Neut % (Auto) (45.5-73.1) % Lymph % (Auto) (18.3-44.2) % [place] % (Auto) (2.6-8.5) % Eos % (Auto) (0-4.4) % Baso % (Auto) (0.2-1.2) % Lymph # (Auto) (0.9-3.2) K/mm3 [place] # (Auto) (0.1-0.6) K/mm3 Eos # (Auto) (0-0.3) K/mm3 Baso # (Auto) (0.0-0.1) K/mm3 Abs Immat Gran (auto) (0.00-0.031) K/mm3 Absolute Neuts (auto) (1.3-6.7) K/mm3 Absolute Nucleated RBC (0.0-0.012) K/mm3 Nucleated RBC % (0.0-0.2) % PT (11.1-14.7) Seconds INR APTT (22.3-36.8) Seconds D-Dimer (<0.48) ug/mL Sodium (137-145) mmol/L Potassium (3.4-5.0) mmol/L Chloride (98-107) mmol/L Carbon Dioxide (22-30) mmol/L Anion Gap (4-12) mmol/L BUN (7-17) mg/dL Creatinine (0.7-1.0) mg/dL Estim Creat Clear Calc Estimated GFR (59 - ) Glucose (65-110) mg/dL Lactic Acid (0.7-2.0) mmol/L Calcium (8.4-10.2) mg/dL Magnesium (1.6-2.3) mg/dL Total Bilirubin (0.2-1.3) mg/dL AST (14-36) U/L ALT (6-35) U/L Alkaline Phosphatase (38-126) U/L Troponin I (0.000-0.034) ng/mL NT-Pro-B Natriuret Pep (19.9-100) pg/mL Total Protein (6.3-8.2) g/dL Albumin (3.5-5.1) g/dL Procalcitonin ng/mL Urine Color Dark yellow (Yellow) Urine Appearance Turbid H (Clear) Urine pH 5.5 (5.0-9.0) Ur Specific [place] 1.035 (1.001-1.035) Urine Protein 3+ H (Negative) mg/dL Urine Glucose (UA) Negative (Negative) mg/dL Urine Ketones 1+ H (Negative) mg/dL Ur Blood (Man) 2+ H (Negative) Urine Nitrate Negative (Negative) Urine Bilirubin 2+ H (Negative) Urine Urobilinogen 2.0 H (<2.0) mg/dL Add Ur Microanalysis Reviewed Leukocyte Esterase Rfl 2+ H (Negative) PARKER/UL Urine RBC 11-20 H (0-2) /hpf Urine WBC 51-100 H (0-3) /hpf Ur Squamous Epith Cells Occasional (Few) /hpf Urine Bacteria 4+ H /hpf Urine Casts 11-20 Urine Yeast (Budding) Present H (None) /hpf Influenza A (RT-PCR) (Negative) Influenza B (RT-PCR) (Negative) RSV (RT-PCR) (Negative) SARS-CoV-2 RNA (RT-PCR) (Negative) <Marysol Lange, ARCHITECT - Last Filed: 10/02/24 16:07> Lab Results 10/02/24 10/02/24 10/02/24 Range/Units 16:04 16:05 19:46 WBC 18.6 H (4.5-10.0) K/mm3 RBC 4.86 (4.2-5.4) M/mm3 Hgb 13.8 (12.0-15.0) g/dL Hct 42.4 (37.0-47.0) % MCV 87.2 (80-100) fl MCH 28.4 (26-34) pg MCHC 32.5 (32-36) g/dl RDW 13.5 (11.5-14.5) % Plt Count 300 (150-375) k/mm3 MPV 9.4 (7.4-10.4) fl Immature Gran % (Auto) 1.0 H (0-0.5) % Neut % (Auto) 75.3 H (45.5-73.1) % Lymph % (Auto) 12.2 L (18.3-44.2) % [place] % (Auto) 10.6 H (2.6-8.5) % Eos % (Auto) 0.6 (0-4.4) % Baso % (Auto) 0.3 (0.2-1.2) % Lymph # (Auto) 2.26 (0.9-3.2) K/mm3 [place] # (Auto) 2.0 H (0.1-0.6) K/mm3 Eos # (Auto) 0.1 (0-0.3) K/mm3 Baso # (Auto) 0.1 (0.0-0.1) K/mm3 Abs Immat Gran (auto) 0.19 H (0.00-0.031) K/mm3 Absolute Neuts (auto) 14.0 H (1.3-6.7) K/mm3 Absolute Nucleated RBC 0.000 (0.0-0.012) K/mm3 Nucleated RBC % 0.0 (0.0-0.2) % PT 15.4 H (11.1-14.7) Seconds INR 1.2 APTT 33.3 (22.3-36.8) Seconds D-Dimer 2.03 H (<0.48) ug/mL Sodium 132 L (137-145) mmol/L Potassium 3.9 (3.4-5.0) mmol/L Chloride 96 L (98-107) mmol/L Carbon Dioxide 29 (22-30) mmol/L Anion Gap 7 (4-12) mmol/L BUN 25 H (7-17) mg/dL Creatinine 0.75 (0.7-1.0) mg/dL Estim Creat Clear Calc Not Reportable Estimated GFR > 60 (59 - ) Glucose 123 H (65-110) mg/dL Lactic Acid 1.2 (0.7-2.0) mmol/L Calcium 8.4 (8.4-10.2) mg/dL Magnesium 2.4 H (1.6-2.3) mg/dL Total Bilirubin 1.0 (0.2-1.3) mg/dL AST 44 H (14-36) U/L ALT 25 (6-35) U/L Alkaline Phosphatase 115 (38-126) U/L Troponin I < 0.012 (0.000-0.034) ng/mL NT-Pro-B Natriuret Pep 157 H (19.9-100) pg/mL Total Protein 7.0 (6.3-8.2) g/dL Albumin 3.4 L (3.5-5.1) g/dL Procalcitonin 0.2 ng/mL Urine Color (Yellow) Urine Appearance (Clear) Urine pH (5.0-9.0) Ur Specific [place] (1.001-1.035) Urine Protein (Negative) mg/dL Urine Glucose (UA) (Negative) mg/dL Urine Ketones (Negative) mg/dL Ur Blood (Man) (Negative) Urine Nitrate (Negative) Urine Bilirubin (Negative) Urine Urobilinogen (<2.0) mg/dL Add Ur Microanalysis Leukocyte Esterase Rfl (Negative) PARKER/UL Urine RBC (0-2) /hpf Urine WBC (0-3) /hpf Ur Squamous Epith Cells (Few) /hpf Urine Bacteria /hpf Urine Casts Urine Yeast (Budding) (None) /hpf Influenza A (RT-PCR) Positive A (Negative) Influenza B (RT-PCR) Negative (Negative) RSV (RT-PCR) Negative (Negative) SARS-CoV-2 RNA (RT-PCR) Negative (Negative) 10/02/24 Range/Units 20:47 WBC (4.5-10.0) K/mm3 RBC (4.2-5.4) M/mm3 Hgb (12.0-15.0) g/dL Hct (37.0-47.0) % MCV (80-100) fl MCH (26-34) pg MCHC (32-36) g/dl RDW (11.5-14.5) % Plt Count (150-375) k/mm3 MPV (7.4-10.4) fl Immature Gran % (Auto) (0-0.5) % Neut % (Auto) (45.5-73.1) % Lymph % (Auto) (18.3-44.2) % [place] % (Auto) (2.6-8.5) % Eos % (Auto) (0-4.4) % Baso % (Auto) (0.2-1.2) % Lymph # (Auto) (0.9-3.2) K/mm3 [place] # (Auto) (0.1-0.6) K/mm3 Eos # (Auto) (0-0.3) K/mm3 Baso # (Auto) (0.0-0.1) K/mm3 Abs Immat Gran (auto) (0.00-0.031) K/mm3 Absolute Neuts (auto) (1.3-6.7) K/mm3 Absolute Nucleated RBC (0.0-0.012) K/mm3 Nucleated RBC % (0.0-0.2) % PT (11.1-14.7) Seconds INR APTT (22.3-36.8) Seconds D-Dimer (<0.48) ug/mL Sodium (137-145) mmol/L Potassium (3.4-5.0) mmol/L Chloride (98-107) mmol/L Carbon Dioxide (22-30) mmol/L Anion Gap (4-12) mmol/L BUN (7-17) mg/dL Creatinine (0.7-1.0) mg/dL Estim Creat Clear Calc Estimated GFR (59 - ) Glucose (65-110) mg/dL Lactic Acid (0.7-2.0) mmol/L Calcium (8.4-10.2) mg/dL Magnesium (1.6-2.3) mg/dL Total Bilirubin (0.2-1.3) mg/dL AST (14-36) U/L ALT (6-35) U/L Alkaline Phosphatase (38-126) U/L Troponin I (0.000-0.034) ng/mL NT-Pro-B Natriuret Pep (19.9-100) pg/mL Total Protein (6.3-8.2) g/dL Albumin (3.5-5.1) g/dL Procalcitonin ng/mL Urine Color Dark yellow (Yellow) Urine Appearance Turbid H (Clear) Urine pH 5.5 (5.0-9.0) Ur Specific [place] 1.035 (1.001-1.035) Urine Protein 3+ H (Negative) mg/dL Urine Glucose (UA) Negative (Negative) mg/dL Urine Ketones 1+ H (Negative) mg/dL Ur Blood (Man) 2+ H (Negative) Urine Nitrate Negative (Negative) Urine Bilirubin 2+ H (Negative) Urine Urobilinogen 2.0 H (<2.0) mg/dL Add Ur Microanalysis Reviewed Leukocyte Esterase Rfl 2+ H (Negative) PARKER/UL Urine RBC 11-20 H (0-2) /hpf Urine WBC 51-100 H (0-3) /hpf Ur Squamous Epith Cells Occasional (Few) /hpf Urine Bacteria 4+ H /hpf Urine Casts 11-20 Urine Yeast (Budding) Present H (None) /hpf Influenza A (RT-PCR) (Negative) Influenza B (RT-PCR) (Negative) RSV (RT-PCR) (Negative) SARS-CoV-2 RNA (RT-PCR) (Negative) <Brenna Wilcox PA-C - Last Filed: 10/02/24 22:14> Lab Results 10/02/24 10/02/24 10/02/24 Range/Units 16:04 16:05 19:46 WBC 18.6 H (4.5-10.0) K/mm3 RBC 4.86 (4.2-5.4) M/mm3 Hgb 13.8 (12.0-15.0) g/dL Hct 42.4 (37.0-47.0) % MCV 87.2 (80-100) fl MCH 28.4 (26-34) pg MCHC 32.5 (32-36) g/dl RDW 13.5 (11.5-14.5) % Plt Count 300 (150-375) k/mm3 MPV 9.4 (7.4-10.4) fl Immature Gran % (Auto) 1.0 H (0-0.5) % Neut % (Auto) 75.3 H (45.5-73.1) % Lymph % (Auto) 12.2 L (18.3-44.2) % [place] % (Auto) 10.6 H (2.6-8.5) % Eos % (Auto) 0.6 (0-4.4) % Baso % (Auto) 0.3 (0.2-1.2) % Lymph # (Auto) 2.26 (0.9-3.2) K/mm3 [place] # (Auto) 2.0 H (0.1-0.6) K/mm3 Eos # (Auto) 0.1 (0-0.3) K/mm3 Baso # (Auto) 0.1 (0.0-0.1) K/mm3 Abs Immat Gran (auto) 0.19 H (0.00-0.031) K/mm3 Absolute Neuts (auto) 14.0 H (1.3-6.7) K/mm3 Absolute Nucleated RBC 0.000 (0.0-0.012) K/mm3 Nucleated RBC % 0.0 (0.0-0.2) % PT 15.4 H (11.1-14.7) Seconds INR 1.2 APTT 33.3 (22.3-36.8) Seconds D-Dimer 2.03 H (<0.48) ug/mL Sodium 132 L (137-145) mmol/L Potassium 3.9 (3.4-5.0) mmol/L Chloride 96 L (98-107) mmol/L Carbon Dioxide 29 (22-30) mmol/L Anion Gap 7 (4-12) mmol/L BUN 25 H (7-17) mg/dL Creatinine 0.75 (0.7-1.0) mg/dL Estim Creat Clear Calc Not Reportable Estimated GFR > 60 (59 - ) Glucose 123 H (65-110) mg/dL Lactic Acid 1.2 (0.7-2.0) mmol/L Calcium 8.4 (8.4-10.2) mg/dL Magnesium 2.4 H (1.6-2.3) mg/dL Total Bilirubin 1.0 (0.2-1.3) mg/dL AST 44 H (14-36) U/L ALT 25 (6-35) U/L Alkaline Phosphatase 115 (38-126) U/L Troponin I < 0.012 (0.000-0.034) ng/mL NT-Pro-B Natriuret Pep 157 H (19.9-100) pg/mL Total Protein 7.0 (6.3-8.2) g/dL Albumin 3.4 L (3.5-5.1) g/dL Procalcitonin 0.2 ng/mL Urine Color (Yellow) Urine Appearance (Clear) Urine pH (5.0-9.0) Ur Specific [place] (1.001-1.035) Urine Protein (Negative) mg/dL Urine Glucose (UA) (Negative) mg/dL Urine Ketones (Negative) mg/dL Ur Blood (Man) (Negative) Urine Nitrate (Negative) Urine Bilirubin (Negative) Urine Urobilinogen (<2.0) mg/dL Add Ur Microanalysis Leukocyte Esterase Rfl (Negative) PARKER/UL Urine RBC (0-2) /hpf Urine WBC (0-3) /hpf Ur Squamous Epith Cells (Few) /hpf Urine Bacteria /hpf Urine Casts Urine Yeast (Budding) (None) /hpf Influenza A (RT-PCR) Positive A (Negative) Influenza B (RT-PCR) Negative (Negative) RSV (RT-PCR) Negative (Negative) SARS-CoV-2 RNA (RT-PCR) Negative (Negative) 10/02/24 Range/Units 20:47 WBC (4.5-10.0) K/mm3 RBC (4.2-5.4) M/mm3 Hgb (12.0-15.0) g/dL Hct (37.0-47.0) % MCV (80-100) fl MCH (26-34) pg MCHC (32-36) g/dl RDW (11.5-14.5) % Plt Count (150-375) k/mm3 MPV (7.4-10.4) fl Immature Gran % (Auto) (0-0.5) % Neut % (Auto) (45.5-73.1) % Lymph % (Auto) (18.3-44.2) % [place] % (Auto) (2.6-8.5) % Eos % (Auto) (0-4.4) % Baso % (Auto) (0.2-1.2) % Lymph # (Auto) (0.9-3.2) K/mm3 [place] # (Auto) (0.1-0.6) K/mm3 Eos # (Auto) (0-0.3) K/mm3 Baso # (Auto) (0.0-0.1) K/mm3 Abs Immat Gran (auto) (0.00-0.031) K/mm3 Absolute Neuts (auto) (1.3-6.7) K/mm3 Absolute Nucleated RBC (0.0-0.012) K/mm3 Nucleated RBC % (0.0-0.2) % PT (11.1-14.7) Seconds INR APTT (22.3-36.8) Seconds D-Dimer (<0.48) ug/mL Sodium (137-145) mmol/L Potassium (3.4-5.0) mmol/L Chloride (98-107) mmol/L Carbon Dioxide (22-30) mmol/L Anion Gap (4-12) mmol/L BUN (7-17) mg/dL Creatinine (0.7-1.0) mg/dL Estim Creat Clear Calc Estimated GFR (59 - ) Glucose (65-110) mg/dL Lactic Acid (0.7-2.0) mmol/L Calcium (8.4-10.2) mg/dL Magnesium (1.6-2.3) mg/dL Total Bilirubin (0.2-1.3) mg/dL AST (14-36) U/L ALT (6-35) U/L Alkaline Phosphatase (38-126) U/L Troponin I (0.000-0.034) ng/mL NT-Pro-B Natriuret Pep (19.9-100) pg/mL Total Protein (6.3-8.2) g/dL Albumin (3.5-5.1) g/dL Procalcitonin ng/mL Urine Color Dark yellow (Yellow) Urine Appearance Turbid H (Clear) Urine pH 5.5 (5.0-9.0) Ur Specific [place] 1.035 (1.001-1.035) Urine Protein 3+ H (Negative) mg/dL Urine Glucose (UA) Negative (Negative) mg/dL Urine Ketones 1+ H (Negative) mg/dL Ur Blood (Man) 2+ H (Negative) Urine Nitrate Negative (Negative) Urine Bilirubin 2+ H (Negative) Urine Urobilinogen 2.0 H (<2.0) mg/dL Add Ur Microanalysis Reviewed Leukocyte Esterase Rfl 2+ H (Negative) PARKER/UL Urine RBC 11-20 H (0-2) /hpf Urine WBC 51-100 H (0-3) /hpf Ur Squamous Epith Cells Occasional (Few) /hpf Urine Bacteria 4+ H /hpf Urine Casts 11-20 Urine Yeast (Budding) Present H (None) /hpf Influenza A (RT-PCR) (Negative) Influenza B (RT-PCR) (Negative) RSV (RT-PCR) (Negative) SARS-CoV-2 RNA (RT-PCR) (Negative) <Cheryl Davenport MD - Last Filed: 10/03/24 18:06> Imaging Data Attestation: I personally reviewed and interpreted this imaging study as follows: < Brenna Wilcox PA-C - Last Filed: 10/02/24 22:14> Radiologist's impression: ITS Impressions Chest X-Ray 10/02/24 16:31 IMPRESSION: Small left-sided pleural effusion with platelike atelectasis in the left mid to lower lung field. Chest CTA 10/02/24 19:55 IMPRESSION: No pulmonary embolus. No aortic dissection. Left basilar consolidation with trace right-sided consolidation. <Brenna Wilcox PA-C - Last Filed: 10/02/24 22:14> ECG Data EKG #1: Attestation: I personally reviewed and interpreted this ECG as follows: <Brenna Wilcox PA-C - Last Filed: 10/02/24 22:14> ECG completion date: 10/02/24 <Brenna Wilcox PA-C - Last Filed: 10/02/24 22:14> ECG completion time: 15:58 <Brenna Wilcox PA-C - Last Filed: 10/02/24 22:14> EKG Interpretation: tachycardia (113), sinus rhythm, PVCs and non-specific ST changes < Brenna Wilcox PA-C - Last Filed: 10/02/24 22:14> Discharge Plan Discharge Clinical Impression: Influenza A, Acute hypoxic respiratory failure, Abnormal urinalysis Pneumonia Qualifiers: Pneumonia type: due to influenza A virus Qualified Code(s): J10.00 - Influenza due to other identified influenza virus with unspecified type of pneumonia <Marysol Lange APRN - Last Filed: 10/02/24 16:07> Patient Disposition: Still a Patient <Marysol Lange APRN - Last Filed: 10/02/24 16:07> Condition: Serious <Marysol Lange, ARCHITECT - Last Filed: 10/02/24 16:07>
[2024-10-02 16:18] LABS: Basophils Absolute Auto 0.1 K/mm3 (0.0-0.1); Basophils Percent Auto 0.3 % (0.2-1.2); Eosinophils Absolute Auto 0.1 K/mm3 (0-0.3); Eosinophils Percent Auto 0.6 % (0-4.4); Hematocrit 42.4 % (37.0-47.0); Hemoglobin 13.8 g/dL (12.0-15.0); Immature Granulocyte Absolute 0.19 K/mm3 (0.00-0.031); Lymphocytes Absolute Auto 2.26 K/mm3 (0.9-3.2); Lymphocytes Percent Auto 12.2 % (18.3-44.2); Mean Corpuscular HGB Conc 32.5 g/dl (32-36); Mean Corpuscular Hemoglobin 28.4 pg (26-34); Mean Corpuscular Volume 87.2 fl (80-100); Mean Platelet Volume 9.4 fl (7.4-10.4); Monocytes Percent Auto 10.6 % (2.6-8.5); Neutrophils Percent Auto 75.3 % (45.5-73.1); Platelet Count Result 300 k/mm3 (150-375); Red Blood Count 4.86 M/mm3 (4.2-5.4); Red Cell Distribution Width 13.5 % (11.5-14.5); White Blood Count 18.6 K/mm3 (4.5-10.0)
[2024-10-02 16:33] LABS: Alanine Aminotransferase 25 U/L (6-35); Albumin Level 3.4 g/dL (3.5-5.1); Alkaline Phosphatase 115 U/L (38-126); Anion Gap 7 mmol/L (4-12); Aspartate Amino Transferase 44 U/L (14-36); Blood Urea Nitrogen 25 mg/dL (7-17); Calcium 8.4 mg/dL (8.4-10.2); Carbon Dioxide 29 mmol/L (22-30); Chloride 96 mmol/L (98-107); Estimated Glomerular Filt Rate > 60; Glucose 123 mg/dL (65-110); INR 1.2; Magnesium 2.4 mg/dL (1.6-2.3); Potassium 3.9 mmol/L (3.4-5.0); Prothrombin Time 15.4 Seconds (11.1-14.7); Sodium 132 mmol/L (137-145)
[2024-10-02 16:34] LABS: Partial Thromboplastin Time 33.3 Seconds (22.3-36.8)
[2024-10-02 16:42] LABS: D Dimer 2.03 ug/mL (<0.48)
[2024-10-02 16:44] LABS: NT Pro B Type Natriuretic Pept 157 pg/mL (19.9-100); Troponin I < 0.012 ng/mL (0.000-0.034)
[2024-10-02 16:51] LABS: Influenza A QL RT-PCR Positive (Negative); Influenza B QL RT-PCR Negative (Negative); RSV RNA, RT-PCR Negative (Negative); SARS-CoV-2 RNA PCR Negative (Negative)
[2024-10-02] MEDS: ACETAMINOPHEN 500 MG TABLET 1000 MG PO (18:52)
--- NOTE | 2024-10-02 19:01 | PC.NURSE ---
CT notified that pt. is ready for imagine.
[2024-10-02] MEDS: SODIUM CHLORIDE 0.9% IV 1,000 ML 999 ML IV CONT (19:47)
[2024-10-02 20:05] LABS: Lactic Acid Reflex 1.2 mmol/L (0.7-2.0)
[2024-10-02 20:23] LABS: Procalcitonin 0.2 ng/mL
[2024-10-02] MEDS: OSELTAMIVIR PHOSPHATE 30 MG CAPSULE PO (21:24)
[2024-10-02 21:39] LABS: Add Urine Microscopic? YES; Appearance Urine Turbid (Clear); Bacteria Urine 4+ /hpf; Bilirubin Urine 2+ (Negative); Blood Urine 2+ (Negative); Budding Yeast Urine Present /hpf; Color Urine Dark Yellow (Yellow); Glucose Urine UA Negative (Negative); Ketones Urine 1+ mg/dL (Negative); Leukocyte Esterase Ur 2+ LEU/UL (Negative); Need Manual Microscopic Reviewed; Nitrate Urine Negative (Negative); Protein Urine 3+ mg/dL (Negative); Specific Grav Ur 1.035 (1.001-1.035); Squamous Epithelial Cell Urine Occasional /hpf (Few); WBC Urine 51-100 /hpf (0-3); pH Urine 5.5 (5.0-9.0)
[2024-10-02] MEDS: AZITHROMYCIN 500 MG/NS 250 ML 500 MG/250 ML BAG 250 MG IVPB (22:19)
[2024-10-03] VITALS (13 sets, daily range): BP systolic 110–142; BP diastolic 52–64; PULSE 74–114; RESP 20–22; TEMP 36.6–36.8; O2SAT 87–96; BMI 37.1
--- NOTE | 2024-10-03 00:19 | ADMGEN ---
This patient, A [place], was admitted to [facility] Surg Room 311-01. Patient/family oriented to hospital policies and general routines including ID bracelet, bed and alarms, visiting hours, pain management, procedures, bathroom and other care routines, personal items, smoking policy, room service/diet, and visiting hours. Information on how to activate the Rapid Response Team has been discussed. Patient/Family are encouraged to report perceived risks to care and to ask questions if they do not understand what they are told or what they should do.
--- NOTE | 2024-10-03 03:27 | P.HP_ITS ---
H&P: HPI History of Present Illness Date/Time: 10/03/24 03:27 Chief Complaint: Shortness of breath, cough Narrative: 74-year-old female with past medical history of obesity, chronic sinusitis and allergic rhinitis who presented to the ER from home due to 9 days of cough, congestion burn chills. She reports that her were exposed to a couple from [facility] that had been sick with a cold. Her began having respiratory symptoms the day before she did. She then noticed markedly increase rhinorrhea and cough productive of clear sputum and wheezing. She reported that over the last 3 days of symptoms she had developed increased wheezing and orthopnea and has subsequently been sleeping sitting up on the couch. She denies any chest pain or palpitations. She is not on standing lower extremity swelling. On arrival to the ER she had fevers greater than 102?. Receive her influenza vaccine. She reports decreased appetite but no nausea or vomiting. She has been having normal bowel movements. Her UA in the ER was abnormal but she denies any increased urinary frequency urgency or dysuria. She does have occasional stress urinary incontinence but this is unchanged from her baseline. She has not had any noticeable hematuria. She does not have a history of frequent urinary tract to. Imaging in the ER demonstrated the right middle lobe pneumonia the patient's influenza PCR was positive. Patient was noted to be hypoxic on arrival to the ER and required oxygen to be titrated to 4 L nasal cannula to maintain oxygen saturations. She has been taking her home decongestants without improvement in her symptoms. Review of Systems 2 Review of Systems: 12 systems were reviewed with pertinent positives and negatives per HPI. Except as documented in the HPI, all other systems were reviewed and are negative. 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-related cataract of both eyes Chronic sinusitis With chronic cough Allergic rhinitis Mixed hyperlipidemia Obesity (BMI 30.0-34.9) Surgical History Surgical History (Updated 10/03/24 @ 03:59 by Melissa Mosqueda DO) S/P cubital tunnel release Left Bunion of unspecified foot Removal yr unknown H/O: x3 1970,1972,1975 Family History Family History Sibling Family history of thyroid disease Family history of Parkinson's disease Family history of Alzheimer's disease Mother Family history of Alzheimer's disease, Onset Age: 87 Family history of diabetes mellitus in first degree relative Father Family history of heart disease in male family member before age 55 Family history of cardiovascular disease Family history of arthritis Family history of hearing loss Social History Social History (Updated 10/03/24 @ 04:01 by Melissa Mosqueda DO) Social History: She lives her of 55 years. They 3 daughters. She is a lifelong nonsmoker and does not drink alcohol or use illicit substances. She is independent in all activities of daily living. Code status: DNR/DNI per patient request Healthcare power of state's attorney: Javon () or if is ill and unable to provide answers she will defer surrogate decision making to Prema (youngest daughter) Smoking status: Never smoker Second hand tobacco smoke exposure: No Alcohol intake: never Substance use: never Substance use type: does not use Do You Feel Safe in your Home?: Yes Lack of Transportation: No Lack of Food: Never True Current Housing: I Have Housing Concerned About Future Housing: No Difficulty Paying Gas/Electric Bills: No Difficulty Paying for Meds: No Currently Unemployed: No Education: Bachelor's Degree Difficulty w/ Childcare or Family Care: No Living arrangements: with family Occupation/Education: retired Gender identity (if verbalized by the patient): Female Sexual Orientation (if Verbalized by the Patient): Straight or Heterosexual Spiritual care concerns: No Agree to blood products: Yes Meds Home Medications and Allergies Home Medications ?Medication ?Instructions ?Recorded ?Confirmed ?Type calcium carbonate (Calcium 600) 600 mg PO BID 08/15/19 10/03/24 History cholecalciferol (vitamin D3) 25 25 mcg PO DAILY 08/15/19 10/03/24 History mcg (1,000 unit) capsule (Vitamin D3) dextromethorphan-guaifenesin 30 See Rx Instructions PO Q12H PRN 04/03/24 10/03/24 Rx mg-600 mg tablet extended cough #90 tabs [id number] hr (Mucinex DM) fluticasone propionate 50 2 spray intranasal DAILY #16 grams 04/03/24 10/03/24 Rx mcg/actuation nasal spray,suspension (Children's Flonase Allergy Relief) atorvastatin 10 mg tablet See Rx Instructions .Route 08/24/24 10/03/24 Rx .COMPLEX #90 tabs Allergies Allergy/AdvReac Type Severity Reaction Status Date / Time No Known Allergies Allergy Verified 10/02/24 15:25 Vital Signs Vital Signs - 24 hr 10/02/24 16:29 10/02/24 18:13 10/02/24 18:16 Temperature 98.3 F 102.9 F H 102.9 F H Pulse Rate 103 H 102 H 105 H Respiratory Rate 24 H 20 22 H Blood Pressure 139/70 149/75 H 129/58 L Pulse Oximetry 94 90 91 Oxygen Delivery Nasal Cannula Nasal Cannula Oxygen Flow Rate 2 4 10/02/24 18:17 10/02/24 18:18 10/02/24 19:30 Temperature Pulse Rate 96 Respiratory Rate 24 H Blood Pressure 118/54 L Pulse Oximetry 92 94 96 Oxygen Delivery Nasal Cannula Nasal Cannula Oxygen Flow Rate 4 4 10/02/24 21:30 10/02/24 22:45 10/03/24 00:42 Temperature 97.8 F Pulse Rate 81 84 Respiratory Rate 24 H Blood Pressure 122/53 L 127/73 Pulse Oximetry 95 96 96 Oxygen Delivery Nasal Cannula Oxygen Flow Rate 4 Exam 2 Narrative: Weight 89.2 kg BMI 37.2 Const: Other: Obese, no acute distress, appears stated age HENMT: Other: Mucous membranes are tacky, no oral pharyngeal erythema, crowded posterior oropharynx, head is normocephalic atraumatic, nasal cannula in place Eyes: Other: Pupils are equal and reactive, no scleral icterus, no conjunctival pallor Neck: Other: Large neck circumference, no JVD, trachea midline Resp: Other: Crackles bilaterally, no increased work of breathing Cardio: Other: Regular rate, regular rhythm, 2+ bilateral radial pedal pulses GI: Other: Soft, nontender, obese, normoactive bowel sounds Skin: Other: 2-3 second cap refill, cool to touch, no n jaundice, no pallor Neuro: Other: Alert oriented x4, speech is clear, no facial asymmetry, no localizing neurologic deficits noted during the course of conversation Extrem: Other: No clubbing, cyanosis or edema, moves bilateral upper and lower extremities equally Psych: Other: Appropriate mood and affect, pleasant and cooperative, judgment and insight intact H&P: Results Labs Labs: Laboratory Tests 10/02/24 16:04 10/02/24 16:05 10/02/24 10/02/24 10/02/24 16:04 16:05 19:46 WBC 18.6 H RBC 4.86 Hgb 13.8 Hct 42.4 MCV 87.2 MCH 28.4 MCHC 32.5 RDW 13.5 Plt Count 300 MPV 9.4 Immature Gran % (Auto) 1.0 H Neut % (Auto) 75.3 H Lymph % (Auto) 12.2 L [place] % (Auto) 10.6 H Eos % (Auto) 0.6 Baso % (Auto) 0.3 Lymph # (Auto) 2.26 [place] # (Auto) 2.0 H Eos # (Auto) 0.1 Baso # (Auto) 0.1 Abs Immat Gran (auto) 0.19 H Absolute Neuts (auto) 14.0 H Absolute Nucleated RBC 0.000 Nucleated RBC % 0.0 PT 15.4 H INR 1.2 APTT 33.3 D-Dimer 2.03 H Sodium 132 L Potassium 3.9 Chloride 96 L Carbon Dioxide 29 Anion Gap 7 BUN 25 H Creatinine 0.75 Estim Creat Clear Calc Not Reportable Estimated GFR > 60 Glucose 123 H Lactic Acid 1.2 Calcium 8.4 Magnesium 2.4 H Total Bilirubin 1.0 AST 44 H ALT 25 Alkaline Phosphatase 115 Troponin I < 0.012 NT-Pro-B Natriuret Pep 157 H Total Protein 7.0 Albumin 3.4 L Procalcitonin 0.2 Urine Color Urine Appearance Urine pH Ur Specific [place] Urine Protein Urine Glucose (UA) Urine Ketones Ur Blood (Man) Urine Nitrate Urine Bilirubin Urine Urobilinogen Add Ur Microanalysis Leukocyte Esterase Rfl Urine RBC Urine WBC Ur Squamous Epith Cells Urine Bacteria Urine Casts Urine Yeast (Budding) Influenza A (RT-PCR) Positive A Influenza B (RT-PCR) Negative RSV (RT-PCR) Negative SARS-CoV-2 RNA (RT-PCR) Negative 10/02/24 20:47 WBC RBC Hgb Hct MCV MCH MCHC RDW Plt Count MPV Immature Gran % (Auto) Neut % (Auto) Lymph % (Auto) [place] % (Auto) Eos % (Auto) Baso % (Auto) Lymph # (Auto) [place] # (Auto) Eos # (Auto) Baso # (Auto) Abs Immat Gran (auto) Absolute Neuts (auto) Absolute Nucleated RBC Nucleated RBC % PT INR APTT D-Dimer Sodium Potassium Chloride Carbon Dioxide Anion Gap BUN Creatinine Estim Creat Clear Calc Estimated GFR Glucose Lactic Acid Calcium Magnesium Total Bilirubin AST ALT Alkaline Phosphatase Troponin I NT-Pro-B Natriuret Pep Total Protein Albumin Procalcitonin Urine Color Dark yellow Urine Appearance Turbid H Urine pH 5.5 Ur Specific [place] 1.035 Urine Protein 3+ H Urine Glucose (UA) Negative Urine Ketones 1+ H Ur Blood (Man) 2+ H Urine Nitrate Negative Urine Bilirubin 2+ H Urine Urobilinogen 2.0 H Add Ur Microanalysis Reviewed Leukocyte Esterase Rfl 2+ H Urine RBC 11-20 H Urine WBC 51-100 H Ur Squamous Epith Cells Occasional Urine Bacteria 4+ H Urine Casts 11-20 Urine Yeast (Budding) Present H Influenza A (RT-PCR) Influenza B (RT-PCR) RSV (RT-PCR) SARS-CoV-2 RNA (RT-PCR) Impressions Chest X-Ray 10/02/24 16:31 IMPRESSION: Small left-sided pleural effusion with platelike atelectasis in the left mid to lower lung field. Chest CTA 10/02/24 19:55 IMPRESSION: No pulmonary embolus. No aortic dissection. Left basilar consolidation with trace right-sided consolidation. EKG: Measurements Intervals [place] Rate: 113 P: 51 FL: 168 QRS: -57 QRSD: 84 T: 65 QT: 311 QTc: 427 Interpretive Statements SINUS TACHYCARDIA WITH OCCASIONAL SUPRAVENTRICULAR PREMATURE COMPLEXES POSSIBLE LEFT ATRIAL ENLARGEMENT LEFT ANTERIOR FASCICULAR BLOCK BASELINE ARTIFACT- I, III, AVR, AVL, AVF, V1, V4-V6 ABNORMAL ECG No previous ECG available for comparison All imaging and EKGs personally reviewed and interpreted. And unless stated otherwise agree with radiologic and cardiology interpretation. Assessment and Plan Assessment and plan (1) Acute hypoxic respiratory failure: Code(s): J96.01 - Acute respiratory failure with hypoxia Status: Acute (2) Sepsis: Qualifiers: Sepsis type: sepsis due to unspecified organism Sepsis acute organ dysfunction status: with acute organ dysfunction Severe sepsis acute organ dysfunction type: acute respiratory failure Acute respiratory failure type: w ith hypoxia Severe sepsis shock status: without septic shock Qualified Code(s): A41.9 - Sepsis, unspecified organism; R65.20 - Severe sepsis without septic shock; J96.01 - Acute respiratory failure with hypoxia Code(s): A41.9 - Sepsis, unspecified organism Status: Acute (3) Influenza A: Code(s): J10.1 - Influenza due to other identified influenza virus with other respiratory manifestations Status: Acute (4) Pneumonia: Qualifiers: Pneumonia type: due to influenza A virus Qualified Code(s): J10.00 - Influenza due to other identified influenza virus with unspecified type of pneumonia Code(s): J18.9 - Pneumonia, unspecified organism Status: Acute (5) ASB (asymptomatic bacteriuria): Code(s): R82.71 - Bacteriuria Status: Acute (6) Snoring: Code(s): R06.83 - Snoring Status: Acute Plan The patient presented with sepsis with fever tachycardia tachypnea and hypoxia in the setting of acute with suspected right middle possible secondary bacterial pneumonia. Again tear bacterial pneumonia suspected due to right distribution of infiltrate and degree of the patient's leukocytosis. Patient was started on empiric antibiotic therapy with Rocephin and azithromycin in the ER. Will check MRSA screen is moved staff of the common secondary bacterial infection following viral infection. Blood cultures have been obtained and are pending. Patient received adequate IV fluid hydration with 1 L of normal saline she has subsequently had a couple of voids. Her UA was abnormal but she does have a history of asymptomatic reports no acute urinary symptoms. Urine cultures have been obtained and are pending but again patient denies urinary symptoms to suggest acute UTI. She did have an elevated D-dimer but PE was ruled out by CTA. Tachycardia likely in part due to fever. Will provide Tylenol as needed. The patient does report new wheezing with acute infection she does not have a history of chronic lung disease. Will give DuoNeb times and see if this improves the patient's symptoms. Will wean oxygen as tolerated. Incentive spirometer available at bedside. Will check urine Legionella antigen and pneumococcal antigen. Will repeat CBC. Patient does have some mild hyponatremia likely due to dehydration dehydration given concomitant elevated ketones in urinalysis. The patient did receive fluid boluses ER. Will encourage oral fluid intake and monitor with repeat electrolyte panel in a.m. She does report snoring and daytime fatigue but has never been tested for sleep apnea. She would benefit from diet lifestyle modification and outpatient polysomnogram once over acute illness. Quality VTE Prophylaxis VTE prophylaxis: pharmacologic ordered (Lovenox 40 mg subQ daily.) Hospitalist [facility] Advance Care Plan I have confirmed that the patient's Advanced Care Plan is present, code status is documented, or surrogate decision maker is listed in patient medical record.: Yes Medication Reconciliation I have utilized all available resources to obtain, update and review the patients current medications (includes all prescriptions, OTC, herbals, cannabis, and nutritional supplements).: Yes
[2024-10-03] MEDS: IPRATROPIUM 0.5 MG/ALBUTEROL SULFATE 2.5 MG AMPUL.NEB 3 ML INHALATION (03:44)
[2024-10-03 08:31] LABS: Basophils Absolute Auto 0.1 K/mm3 (0.0-0.1); Basophils Percent Auto 0.3 % (0.2-1.2); Eosinophils Absolute Auto 0.1 K/mm3 (0-0.3); Eosinophils Percent Auto 0.4 % (0-4.4); Hematocrit 39.5 % (37.0-47.0); Hemoglobin 12.9 g/dL (12.0-15.0); Immature Granulocyte Absolute 0.23 K/mm3 (0.00-0.031); Immature Granulocyte Percent A 1.4 % (0-0.5); Lymphocytes Absolute Auto 2.93 K/mm3 (0.9-3.2); Lymphocytes Percent Auto 17.8 % (18.3-44.2); Mean Corpuscular HGB Conc 32.7 g/dl (32-36); Mean Corpuscular Hemoglobin 28.5 pg (26-34); Mean Corpuscular Volume 87.4 fl (80-100); Monocytes Absolute Auto 1.7 K/mm3 (0.1-0.6); Monocytes Percent Auto 10.5 % (2.6-8.5); Neutrophils Absolute Auto 11.5 K/mm3 (1.3-6.7); Neutrophils Percent Auto 69.6 % (45.5-73.1); Platelet Count Result 282 k/mm3 (150-375); Red Blood Count 4.52 M/mm3 (4.2-5.4); Red Cell Distribution Width 13.6 % (11.5-14.5); White Blood Count 16.5 K/mm3 (4.5-10.0)
[2024-10-03 08:44] LABS: Anion Gap 5 mmol/L (4-12); Blood Urea Nitrogen 16 mg/dL (7-17); Calcium 7.9 mg/dL (8.4-10.2); Carbon Dioxide 29 mmol/L (22-30); Chloride 100 mmol/L (98-107); Estimated CRCL calculation 68 ml/min; Estimated Glomerular Filt Rate > 60; Glucose 106 mg/dL (65-110); Potassium 3.6 mmol/L (3.4-5.0); Sodium 134 mmol/L (137-145)
[2024-10-03] MEDS: CALCIUM CARBONATE (OSCAL) 500 MG TABLET PO (11:18)
[2024-10-03] MEDS: ENOXAPARIN 40 MG/0.4 ML SYRINGE SUB-Q (11:18)
[2024-10-03] MEDS: ATORVASTATIN 10 MG TABLET PO (11:18)
[2024-10-03] MEDS: OSELTAMIVIR PHOSPHATE 30 MG CAPSULE PO (11:18)
[2024-10-03] MEDS: CHOLECALCIFEROL 1,000 UNITS TABLET 1000 UNITS PO (11:18)
--- NOTE | 2024-10-03 11:23 | PM.DS ---
DS: Admitting Diagnosis Discharge Date 10/03/24 Admitting Diagnosis SOB DS: Discharge Diagnosis Discharge Diagnosis (1) Acute hypoxic respiratory failure: Code(s): J96.01 - Acute respiratory failure with hypoxia Status: Acute (2) Pneumonia: Qualifiers: Pneumonia type: due to influenza A virus Qualified Code(s): J10.00 - Influenza due to other identified influenza virus with unspecified type of pneumonia Code(s): J18.9 - Pneumonia, unspecified organism Status: Acute (3) Influenza A: Code(s): J10.1 - Influenza due to other identified influenza virus with other respiratory manifestations Status: Acute DS: Summary Hospital Course Hospital Course: 74-year-old female with past medical history of obesity, chronic sinusitis and allergic rhinitis who presented to the ER from home due to 9 days of cough, congestion burn chills. She reports that her were exposed to a couple from [employer] that had been sick with a cold. Her began having respiratory symptoms the day before she did. She then noticed markedly increase rhinorrhea and cough productive of clear sputum and wheezing. She reported that over the last 3 days of symptoms she had developed increased wheezing and orthopnea and has subsequently been sleeping sitting up on the couch. She denies any chest pain or palpitations. She is not on standing lower extremity swelling. On arrival to the ER she had fevers greater than 102?. Receive her influenza vaccine. She reports decreased appetite but no nausea or vomiting. She has been having normal bowel movements. Her UA in the ER was abnormal but she denies any increased urinary frequency urgency or dysuria. She does have occasional stress urinary incontinence but this is unchanged from her baseline. She has not had any noticeable hematuria. She does not have a history of frequent urinary tract to. Imaging in the ER demonstrated the right middle lobe pneumonia the patient's influenza PCR was positive. Patient was noted to be hypoxic on arrival to the ER and required oxygen to be titrated to 4 L nasal cannula to maintain oxygen saturations. She has been taking her home decongestants without improvement in her symptoms. This morning patient is alert and ambulating on her own, tolerating diet, leukocytosis resolving and was on room air. Patient will discharge on oxygen based on home o2 eval. Discharged on 5 more days of Levaquin and Flagyl and 4 days more of Tamiflu. F/u wtih PCP in 3-5 days. Time Spent with Patient Time attestation: Total time spent providing and/or coordinating discharge services: DS: Data Data Completed and Pending Labs on day of discharge: Labs from last 24 hours 10/03/24 10/02/24 10/02/24 08:20 20:47 19:46 WBC 16.5 H RBC 4.52 Hgb 12.9 Hct 39.5 MCV 87.4 MCH 28.5 MCHC 32.7 RDW 13.6 Plt Count 282 MPV 9.0 Immature Gran % (Auto) 1.4 H Neut % (Auto) 69.6 Lymph % (Auto) 17.8 L [place] % (Auto) 10.5 H Eos % (Auto) 0.4 Baso % (Auto) 0.3 Lymph # (Auto) 2.93 [place] # (Auto) 1.7 H Eos # (Auto) 0.1 Baso # (Auto) 0.1 Abs Immat Gran (auto) 0.23 H Absolute Neuts (auto) 11.5 H Absolute Nucleated RBC 0.000 Nucleated RBC % 0.0 PT INR APTT D-Dimer Sodium 134 L Potassium 3.6 Chloride 100 Carbon Dioxide 29 Anion Gap 5 BUN 16 Creatinine 0.61 L Estim Creat Clear Calc 68 Estimated GFR > 60 Glucose 106 Lactic Acid 1.2 Calcium 7.9 L Magnesium Total Bilirubin AST ALT Alkaline Phosphatase Troponin I NT-Pro-B Natriuret Pep Total Protein Albumin Procalcitonin 0.2 Urine Color Dark yellow Urine Appearance Turbid H Urine pH 5.5 Ur Specific [place] 1.035 Urine Protein 3+ H Urine Glucose (UA) Negative Urine Ketones 1+ H Ur Blood (Man) 2+ H Urine Nitrate Negative Urine Bilirubin 2+ H Urine Urobilinogen 2.0 H Add Ur Microanalysis Reviewed Leukocyte Esterase Rfl 2+ H Urine RBC 11-20 H Urine WBC 51-100 H Ur Squamous Epith Cells Occasional Urine Bacteria 4+ H Urine Casts 11-20 Urine Yeast (Budding) Present H Influenza A (RT-PCR) Influenza B (RT-PCR) RSV (RT-PCR) SARS-CoV-2 RNA (RT-PCR) 10/02/24 10/02/24 16:05 16:04 WBC 18.6 H RBC 4.86 Hgb 13.8 Hct 42.4 MCV 87.2 MCH 28.4 MCHC 32.5 RDW 13.5 Plt Count 300 MPV 9.4 Immature Gran % (Auto) 1.0 H Neut % (Auto) 75.3 H Lymph % (Auto) 12.2 L [place] % (Auto) 10.6 H Eos % (Auto) 0.6 Baso % (Auto) 0.3 Lymph # (Auto) 2.26 [place] # (Auto) 2.0 H Eos # (Auto) 0.1 Baso # (Auto) 0.1 Abs Immat Gran (auto) 0.19 H Absolute Neuts (auto) 14.0 H Absolute Nucleated RBC 0.000 Nucleated RBC % 0.0 PT 15.4 H INR 1.2 APTT 33.3 D-Dimer 2.03 H Sodium 132 L Potassium 3.9 Chloride 96 L Carbon Dioxide 29 Anion Gap 7 BUN 25 H Creatinine 0.75 Estim Creat Clear Calc Not Reportable Estimated GFR > 60 Glucose 123 H Lactic Acid Calcium 8.4 Magnesium 2.4 H Total Bilirubin 1.0 AST 44 H ALT 25 Alkaline Phosphatase 115 Troponin I < 0.012 NT-Pro-B Natriuret Pep 157 H Total Protein 7.0 Albumin 3.4 L Procalcitonin Urine Color Urine Appearance Urine pH Ur Specific [place] Urine Protein Urine Glucose (UA) Urine Ketones Ur Blood (Man) Urine Nitrate Urine Bilirubin Urine Urobilinogen Add Ur Microanalysis Leukocyte Esterase Rfl Urine RBC Urine WBC Ur Squamous Epith Cells Urine Bacteria Urine Casts Urine Yeast (Budding) Influenza A (RT-PCR) Positive A Influenza B (RT-PCR) Negative RSV (RT-PCR) Negative SARS-CoV-2 RNA (RT-PCR) Negative Discharge Plan Discharge Attending physician on discharge: Angel Luis Sifuentes Discharging Clinician: Angel Luis Sifuetnes Anticipated Discharge Date/Time: 10/03/24 11:20 Patient Disposition: Home, Self-Care Activity: as tolerated Diet: as tolerated Patient Instructions: Antibiotic Form Patient Language: Citizen Of [place] Stand Alone Forms: General Discharge Information Follow-up/Referrals: Karine Zuñiga APRN [Primary Care Provider] - (F/u with PCP in 3-5 days ) Discharge Medications: New oseltamivir [Tamiflu] 75 mg Capsule 75 mg PO Q12HR 4 Days Qty: 8 0RF levofloxacin 750 mg tablet 750 mg PO DAILY 5 Days Qty: 5 0RF metronidazole 500 mg tablet 500 mg PO Q8H 6 Days Qty: 18 0RF Continued fluticasone propionate [Children's Flonase Allergy Rlf] 50 mcg/actuation spray,suspension 2 spray intranasal DAILY Qty: 16 6RF Rx Instructions: administer into each nostril Mucinex DM 30-600 mg tablet extended release 12 hr See Rx Instructions PO Q12H PRN (Reason: cough) Qty: 90 0RF Rx Instructions: orally every 12 hours PRN; 1-2 tabs as needed for cough cholecalciferol (vitamin D3) [Vitamin D3] 25 mcg (1,000 unit) capsule 25 mcg PO DAILY calcium carbonate [Calcium 600] 600 mg calcium (1,500 mg) tablet 600 mg PO BID atorvastatin 10 mg tablet See Rx Instructions .ROUTE .COMPLEX Qty: 90 1RF Dose Instruction: Take 1 Tablet (10 mg) by mouth daily. Rx Instructions: Take 1 Tablet (10 mg) by mouth daily. Date of admission: 10/02/24 22:04 Primary Care Provider: Karine Zuñiga Admitting Provider: Melissa Mosqueda Attending physician on admission: Melissa Mosqueda Condition: Serious
--- NOTE | 2024-10-03 13:33 | HOMEO2EVAL ---
Evaluation was performed at [facility] Home Oxygen Evaluation RC: Home Oxygen (O2) Evaluation Start: 10/03/24 11:43 Freq: ONCE Status: Active Protocol: RPE Activity Type Activity Date Activity User E-sign Co-sign Detail Recorded Client Recorded Date Recorded By Document 10/03/24 13:00 DJO [email or web address] 10/03/24 13:33 DJO Document 10/03/24 13:05 [email or web address] [email or web address] 10/03/24 13:33 DJO Document 10/03/24 13:10 [email or web address] [email or web address] 10/03/24 13:33 DJO Document 10/03/24 13:15 [email or web address] [email or web address] 10/03/24 13:33 DJO Document 10/03/24 13:30 [email or web address] [email or web address] 10/03/24 13:33 DJO 10/03/24 10/03/24 10/03/24 13:00 13:05 13:10 Home O2 Evaluation [Oxygen] -Test Phase Resting Exercise Exercise -Oxygen Delivery Room Air Room Air Nasal Cannula -Oxygen Flow Rate (L/min) 1 [Pulse Oximetry] -Pulse Oximetry (90-100 %) 90 87 L 88 L [Pulse Rate] -Pulse Rate (60-100 beats/min) 88 112 H 114 H [Evaluation] -Activity Tolerance [Charges] -Evaluation Charges O2 Evaluation by Pulmonary 10/03/24 10/03/24 13:15 13:30 Home O2 Evaluation [Oxygen] -Test Phase Exercise Resting -Oxygen Delivery Nasal Cannula Room Air -Oxygen Flow Rate (L/min) 2 [Pulse Oximetry] -Pulse Oximetry (90-100 %) 91 91 [Pulse Rate] -Pulse Rate (60-100 beats/min) 113 H 89 [Evaluation] -Activity Tolerance Good [Charges] -Evaluation Charges
--- NOTE | 2024-10-03 15:10 | PCRCNOTE ---
Home O2 eval complete. Set up with Daniel. Tank in room for discharge.
--- NOTE | 2024-10-04 05:44 | WPDCDIQUERY2 ---
CDI Query Clarification Request H&P states: Assessment and Plan Assessment and plan (2) Sepsis: Qualifiers: Sepsis type: sepsis due to unspecified organism Sepsis acute organ dysfunction status: with acute organ dysfunction Severe sepsis acute organ dysfunction type: acute respiratory failure Acute respiratory failure type: with hypoxia Severe sepsis shock status: without septic shock Qualified Code(s): A41.9 - Sepsis, unspecified organism; R65.20 - Severe sepsis without septic shock; J96.01 - Acute respiratory failure with hypoxia Code(s): A41.9 - Sepsis, unspecified organism Status: Acute Discharge summary does not mention sepsis. Please clarify if sepsis has been ruled in or ruled out on admission. <Rin Mitchell RN - Last Filed: 10/04/24 05:48> Clarified Diagnosis Clarified Diagnosis: Patient was managed for sepsis She had fever, tachycardia and tachypnea and leukocytosis on admission. <Angel Luis Sifuentes MD - Last Filed: 10/04/24 09:21>
== END 2024-10-03 15:15 | disposition home or self-care (01) | DRG 194 ==
LOC: ANHED 21:08 → ANH3MEDSUR 22:10
PROVIDERS: Family Medicine; Registered Nurse; Admitting Provider Internal Medicine; Emergency Provider Physician Assistant; PCP Nurse Practitioner Family; Visit Provider Internal Medicine
DX: J10.08 Influenza due to other identified influenza virus with other specified pneumonia (principal); E87.1 Hypo-osmolality and hyponatremia; J90 Pleural effusion, not elsewhere classified; J15.9 Unspecified bacterial pneumonia; E86.0 Dehydration; E66.9 Obesity, unspecified; Z68.37 Body mass index [BMI] 37.0-37.9, adult; J32.9 Chronic sinusitis, unspecified; N39.3 Stress incontinence (female) (male); M85.89 Other specified disorders of bone density and structure, multiple sites; E78.2 Mixed hyperlipidemia; R82.71 Bacteriuria
CPT/HCPCS: 36415; 71046; 71275; 80048; 80053; 81001; 83605; 83735; 83880; 84145; 84484; 85025; 85380; 85610; 85730; 87040; 87086; 87637; 93005; 94618; 94640; 96361; 96365; 96367; 96375; 99285; A9270; J0456; J0696; J1650; J7030; Q9967

== ENCOUNTER 2024-12-05 08:13 | Outpatient (CLI) | payer MEDICARE, SELFPAY ==
[2024-12-05 08:52] LABS: Basophils Absolute Auto 0.1 K/mm3 (0.0-0.1); Basophils Percent Auto 0.6 % (0.2-1.2); Eosinophils Absolute Auto 0.2 K/mm3 (0-0.3); Eosinophils Percent Auto 1.7 % (0-4.4); Hematocrit 47.1 % (37.0-47.0); Hemoglobin 14.8 g/dL (12.0-15.0); Immature Granulocyte Absolute 0.02 K/mm3 (0.00-0.031); Immature Granulocyte Percent A 0.2 % (0-0.5); Lymphocytes Absolute Auto 4.17 K/mm3 (0.9-3.2); Lymphocytes Percent Auto 44.5 % (18.3-44.2); Mean Corpuscular HGB Conc 31.4 g/dl (32-36); Mean Corpuscular Hemoglobin 28.4 pg (26-34); Mean Corpuscular Volume 90.4 fl (80-100); Mean Platelet Volume 8.6 fl (7.4-10.4); Monocytes Absolute Auto 1.1 K/mm3 (0.1-0.6); Monocytes Percent Auto 11.3 % (2.6-8.5); Neutrophils Absolute Auto 3.9 K/mm3 (1.3-6.7); Neutrophils Percent Auto 41.7 % (45.5-73.1); Platelet Count Result 282 k/mm3 (150-375); Red Blood Count 5.21 M/mm3 (4.2-5.4); Red Cell Distribution Width 14.3 % (11.5-14.5); White Blood Count 9.4 K/mm3 (4.5-10.0)
[2024-12-05 09:21] LABS: Cholesterol 147 mg/dL (0-200); HDL Direct 47 mg/dL; Triglycerides 151 mg/dL (<150)
[2024-12-05 09:32] LABS: LDL Cholesterol Direct 68 mg/dL
[2024-12-05 10:26] LABS: Hemoglobin A1C 5.7 % (<5.7)
== END 2024-12-05 08:14 | disposition home or self-care (01) ==
PROVIDERS: PCP Nurse Practitioner Family; Visit Provider Nurse Practitioner Family
DX: R73.01 Impaired fasting glucose (principal); E78.2 Mixed hyperlipidemia; E66.9 Obesity, unspecified; Z12.39 Encounter for other screening for malignant neoplasm of breast; R05.3 Chronic cough
CPT/HCPCS: 36415; 80061; 83036; 85025

== ENCOUNTER 2025-03-05 09:39 | Outpatient (CLI) | payer MEDICARE, SELFPAY ==
--- NOTE | ~2025-03-05 | XR_ITS ---
EXAM/ PROCEDURE: XR hand RT min 3V - 03/05/2025 9:48 CDT HISTORY: 74 years old Female with M65.311 - Trigger thumb, right thumb COMPARISON: None available TECHNIQUE: Three view(s) FINDINGS/ IMPRESSION: There are no fractures or dislocations.Joint space narrowing, subchondral sclerosis, subchondral cyst formation and osteophyte formation, compatible with [id number] osteoarthritis, most pronounced at first carpometacarpal joint. Reviewed, dictated and finalized at location A.
== END 2025-03-05 09:40 | disposition home or self-care (01) ==
PROVIDERS: PCP Nurse Practitioner Family; Visit Provider Plastic Surgery
DX: M65.311 Trigger thumb, right thumb (principal)
CPT/HCPCS: 73130

== ENCOUNTER 2025-05-30 07:48 | Outpatient (CLI) | payer MEDICARE, SELFPAY ==
[2025-05-30 08:11] LABS: Hematocrit 45.9 % (37.0-47.0); Hemoglobin 14.6 g/dL (12.0-15.0); Immature Granulocyte Percent A 0.5 % (0-0.5); Lymphocytes Absolute Auto 5.15 K/mm3 (0.9-3.2); Mean Corpuscular HGB Conc 31.8 g/dl (32-36); Mean Corpuscular Hemoglobin 28.2 pg (26-34); Mean Corpuscular Volume 88.6 fl (80-100); Nucleated Red Blood Cells Absolute Auto 0.000 K/mm3 (0.0-0.012); Nucleated Red Blood Cells Perc 0.0 % (0.0-0.2); Platelet Count Result 279 k/mm3 (150-375); Red Blood Count 5.18 M/mm3 (4.2-5.4); White Blood Count 11.9 K/mm3 (4.5-10.0)
[2025-05-30 08:27] LABS: Alanine Aminotransferase 14 U/L (6-35); Albumin Level 3.7 g/dL (3.5-5.1); Alkaline Phosphatase 82 U/L (38-126); Anion Gap 6 mmol/L (4-12); Aspartate Amino Transferase 36 U/L (14-36); Bilirubin,Total 0.5 mg/dL (0.2-1.3); Blood Urea Nitrogen 19 mg/dL (7-17); Calcium 8.8 mg/dL (8.4-10.2); Carbon Dioxide 29 mmol/L (22-30); Chloride 102 mmol/L (98-107); Cholesterol 149 mg/dL (0-200); Estimated Glomerular Filt Rate 58; Glucose 113 mg/dL (65-110); HDL Direct 46 mg/dL; Potassium 4.3 mmol/L (3.4-5.0); Sodium 137 mmol/L (137-145); Total Protein 6.7 g/dL (6.3-8.2); Triglycerides 188 mg/dL (<150)
[2025-05-30 08:37] LABS: Hemoglobin A1C 6.0 % (<5.7)
== END 2025-05-30 07:49 | disposition home or self-care (01) ==
PROVIDERS: PCP Nurse Practitioner Family; Visit Provider Nurse Practitioner Family
DX: R73.01 Impaired fasting glucose (principal); E78.2 Mixed hyperlipidemia; E66.9 Obesity, unspecified; Z12.39 Encounter for other screening for malignant neoplasm of breast; R05.3 Chronic cough
CPT/HCPCS: 36415; 80053; 80061; 83036; 85025

== ENCOUNTER 2025-08-21 09:32 | Outpatient (CLI) | payer MEDICARE, SELFPAY ==
--- NOTE | ~2025-08-21 | MM_ITS ---
EXAMINATION: MM screening mere BI w jeanie HISTORY: Screening. TECHNIQUE: Craniocaudal and mediolateral oblique 3-D tomosynthesis images were obtained and synthetic 2-D images were generated. CAD analysis was submitted and interpreted. COMPARISON: September 18. 2023, 2022, and 2021. BREAST PARENCHYMAL COMPOSITION: Not Dense: There are scattered areas of fibroglandular FINDINGS: There are findings consistent with the known breast cysts. No suspicious masses are seen. There are no suspicious calcifications. No unexplained architectural distortion is seen. There are no skin or nipple abnormalities identified. There is no adenopathy seen on the images submitted. IMPRESSION: No mammographic evidence to suggest malignancy is seen. The patient may return to screening mammography as per ACR guidelines. BI-RADS 2 - Benign. Reviewed, dictated and finalized at location A. STANT MANAGER/EMBALMER
--- OUTSIDE RECORDS SUMMARY | 2025-08-21 09:36 | XMS_ITS | Clinical Summary ---
Author Organization [facility] Address [address] Flores: Russel Prewilliam [place] [address] Care Team Providers Care Logistics System Engineer Name Role Phone Unavailable Primary Care Provider Unavailabl e Medications fluticasone propionate (FLONASE) 50 mcg/spray [place], Suspension nasal inhaler Administer 2 sprays in each nostril once daily. 16 Gram 6 3 Active loratadine-pseu doephedrine (Claritin-D 24 Hour) 10-240 mg Extended Release 24 hour tablet Take 1 Tablet by mouth 1 time daily as needed for allergy symptoms. 30 Tablet 1 4 Active dextromethorpha n-guaiFENesin (Mucinex DM) 30-600 mg Tablet Sustained Release 12HR Take 1-2 Tablets by mouth every 12 hours as needed for cough. 90 Tablet 4 Active azithromycin (ZITHROMAX) 250 mg tablet Take 2 tablets by mouth as a single dose today, then take 1 tablet by mouth once daily for 4 days. 6 Tablet 10/12/2023 5:28 PM STATISTICAL CLERK 4 Active amoxicillin-cla vulanate (AUGMENTIN) 875-125 mg tablet Take 1 tablet orally twice a day 20 Tablet 04/03/2024 10:11 AM CDT 4 Active fluticasone propionate (FLONASE) 50 mcg/spray [place], Suspension nasal inhaler Use 2 sprays intranasally daily; administer into each nostril 16 Gram 6 09/13/2024 2:04 PM STATISTICAL CLERK 4 Active predniSONE (DELTASONE) 20 mg tablet Take two tablets (40 mg) orally daily 10 Tablet 04/03/2024 10:11 AM CDT 4 Active dextromethorpha n-guaiFENesin (Mucinex DM) 30-600 mg Tablet Sustained Release 12HR Take 1-2 tablets every twelve hours as needed for cough 90 Tablet 4 Active fluticasone propionate (FLONASE) 50 mcg/spray [place], Suspension nasal inhaler 2 sprays intranasally daily; administer into each nostril 16 Gram 6 12/04/2024 5:56 PM CDT 5 Active montelukast (SINGULAIR) 10 mg tablet Take 1 Tablet (10 mg) by mouth daily at bedtime. 30 Tablet 2 12/04/2024 5:56 PM CDT 5 Active omeprazole (PriLOSEC) 40 mg Capsule, Delayed Release(E.C.) Take 1 Capsule (40 mg) by mouth daily in the morning 30 minutes before meal. 90 Capsule 4 12/12/2024 7:52 AM CDT 5 Active famotidine (PEPCID) 20 mg tablet Take 1 Tablet (20 mg) by mouth nightly as needed. 90 Tablet 4 03/12/2025 2:36 PM CDT 5 Active omeprazole (PriLOSEC) 20 mg Capsule, Delayed Release(E.C.) Take 1 Capsule (20 mg) by mouth 1/2 to 1 hour before morning meal and before bed. 180 Capsule 4 06/13/2025 10:49 AM CDT 5 Active atorvastatin (LIPITOR) 10 mg tablet Take 1 Tablet (10 mg) by mouth daily. 90 Tablet 1 5 Active Social History Tobacco Use Types Packs/Day Years Used Date Smoking Tobacco: Never Assessed Comments Unknown Sex and Gender Information Value Date Recorded Sex Assigned at Not on file Legal Sex Female 3:27 PM CDT Gender Identity Not on file Sexual Orientation Not on file Plan of Treatment Health Maintenance Due Date Last Done Comments DTAP/TDAP/TD VACCINES (1 - Tdap) 1967 PNEUMOCOCCAL VACCINE 50+ YEARS (1 of 1 - PCV) 03/11/19 98 ZOSTER VACCINE (1 of 2) 1998 OSTEOPOROSIS SCREENING 2013 RSV VACCINE (60+ or ) (1 - 1-dose 75+ series) 2023 INFLUENZA VACCINE (#1) 2025 Insurance RX [employer] RX Member Subscriber Plan / Payer (Ef fective 2023-Present) Name:Sabine Mesa Relation to Subscriber:Self Name:Moshe Sabine Subscriber ID:Not on file Payer ID:Not on file Group ID:[id number] Type:RX Medicare Part D Address: [place] [employer] (INTERNAL) [facility] [employer]
--- OUTSIDE RECORDS SUMMARY | 2025-08-21 09:36 | XMS_ITS | Clinical Summary ---
Author Organization [facility] Address [address] [place] [id number] Phone Care Team Providers Care Senior Sql Server Database Developer Name Role Phone Unavailable Primary Care Provider Unavailabl e Medications atorvastatin (LIPITOR) 20 MG tablet 1 tab/cap qday 12/09/2013 Active aspirin (ST JOSE) 81 MG EC tablet 1 tab/cap qday 12/09/2013 Active Active Problems Problem Noted Date Diagnosed Date Chronic kidney disease, stage 2 (mild) 4 Other and unspecified hyperlipidemia 12/09/2013 Overview (11/11/2018): Converted unresolved ICD9, potential mismatch. Family History Medical History Relation Comments Heart disease Father Diabetes mellitus Mother Kidney disease Neg Hx Kidney stone Neg Hx Relation Status Comments Father Mother Social History Tobacco Use Types Packs/Day Years Used Date Smoking Tobacco: Never Assessed Comments Unknown Sex and Gender Information Value Date Recorded Sex Assigned at Not on file Legal Sex Female 9:30 AM MST Gender Identity Not on file Sexual Orientation Not on file Last Filed Vital Signs Vital Sign Reading Time Taken Comments Blood Pressure - - Pulse - - Temperature 36.7 C (98.1 F) 12/10/2013 12:01 AM CDT Respiratory Rate - - Oxygen Saturation - - Inhaled Oxygen Concentration - - Weight 81.2 kg (179 lb) 12/10/2013 12:01 AM CDT Height 152.4 cm (5') 12/10/2013 12:01 AM CDT Body Mass Index 34.96 12/10/2013 12:01 AM CDT Plan of Treatment Not on file
== END 2025-08-21 09:33 | disposition home or self-care (01) ==
LOC: ANHFOHIMG 09:34
PROVIDERS: PCP Nurse Practitioner Family; Visit Provider Nurse Practitioner Family
DX: Z12.31 Encounter for screening mammogram for malignant neoplasm of breast (principal)
CPT/HCPCS: 77063; 77067